=== PATIENT | female | born 1945 | race American Indian/Alaskan Native ===

== ENCOUNTER 2021-01-30 07:29 | Inpatient (IN) | payer MEDICARE ==
[2021-01-30] MEDS ORDERED: cefTRIAXone/NS 1 GM/50 ML 1 GM/50 ML BAG IV ONE (08:47)
[2021-01-30] MEDS ORDERED: dexAMETHasone 20 MG/5 ML VIAL IV ONE (08:47)
[2021-01-30] MEDS ORDERED: AZITHROMYCIN/NS 500 MG/250 ML 500 MG/250 ML BAG IV ONE (08:47)
--- NOTE | 2021-01-30 08:48 | Emergency Department Report ---
ED Fever HPI - General Chief Complaint: Weakness Stated Complaint: WEAKNESS Time Seen by Provider: 01/30/21 08:03 - History of Present Illness Initial Comments: Chief complaint: " I am not feeling too well." HPI: This is a 76-year-old female with history of multiple sclerosis who presents with generalized malaise. She also has fever chills cough shortness of breath. She denies loss of taste or smell. She denies abdominal pain chest pain diarrhea. She denies headache. She lives with son. Son has similar symptoms. Patient has not been hospitalized recently. No history of travel. She did not receive COVID-19 vaccine. She is not followed by a neurologist or primary care physician. Timing/Duration: other (Several days) Fever Severity/Quality: subjective Associated Symptoms: cough, sore throat ED Review of Systems ROS: Stated complaint: WEAKNESS Other details as noted in HPI Comment: All other systems reviewed and negative Constitutional: chills, fever, malaise ENT: denies: throat pain Respiratory: cough, shortness of breath Cardiovascular: denies: chest pain Gastrointestinal: denies: abdominal pain, nausea, vomiting, diarrhea ED Past Medical Hx - Past Medical History Previous Medical History?: Yes Additional medical history: Multiple Sclerosis - Surgical History Past Surgical History?: No - Family History Family history: hypertension - Social History Smoking Status: Never Smoker Substance Use Type: None ED Physical Exam - General Limitations: No Limitations General appearance: alert, in no apparent distress, other (Frequent cough) - Head Head exam: Present: atraumatic, normocephalic - Eye Eye exam: Present: normal appearance - ENT ENT exam: Present: mucous membranes moist - Neck Neck exam: Present: normal inspection, full ROM - Respiratory Respiratory exam: Present: rales, decreased breath sounds. Absent: respiratory distress, wheezes, rhonchi - Cardiovascular Cardiovascular Exam: Present: regular rate, normal rhythm, normal heart sounds. Absent: systolic murmur, diastolic murmur, rubs, gallop - GI/Abdominal GI/Abdominal exam: Present: soft, normal bowel sounds. Absent: distended, tenderness, guarding, rebound - Extremities Exam Extremities exam: Present: normal inspection - Neurological Exam Neurological exam: Present: alert, oriented X3 - Psychiatric Psychiatric exam: Present: normal affect, normal mood - Skin Skin exam: Present: warm, dry, intact, normal color. Absent: rash ED Course Vital Signs 01/30/21 01/30/21 01/30/21 07:49 08:03 08:16 Temperature 100.4 F H Pulse Rate 100 H 89 Respiratory 18 18 Rate Blood Pressure 140/50 140/64 140/64 O2 Sat by Pulse 99 96 95 Oximetry 01/30/21 01/30/21 01/30/21 08:30 08:45 09:00 Temperature Pulse Rate 91 H 95 H 89 Respiratory 15 17 19 Rate Blood Pressure 137/55 143/77 140/51 O2 Sat by Pulse 96 94 Oximetry 01/30/21 01/30/21 01/30/21 09:16 09:30 09:46 Temperature Pulse Rate 92 H 95 H 105 H Respiratory 18 15 18 Rate Blood Pressure 140/51 142/67 142/67 O2 Sat by Pulse 98 96 98 Oximetry 01/30/21 01/30/21 01/30/21 10:00 10:16 10:30 Temperature Pulse Rate 101 H 96 H 98 H Respiratory 19 20 19 Rate Blood Pressure 137/74 137/74 144/70 O2 Sat by Pulse 96 96 99 Oximetry 01/30/21 01/30/21 01/30/21 10:46 10:58 11:00 Temperature Pulse Rate 103 H 94 H Respiratory 14 16 21 Rate Blood Pressure 144/70 153/90 O2 Sat by Pulse 97 96 97 Oximetry 01/30/21 01/30/21 01/30/21 11:16 11:30 11:46 Temperature Pulse Rate 102 H 105 H 110 H Respiratory 20 21 20 Rate Blood Pressure 153/90 153/90 153/90 O2 Sat by Pulse 98 95 95 Oximetry 01/30/21 01/30/21 01/30/21 12:00 12:16 12:30 Temperature Pulse Rate 100 H 98 H 99 H Respiratory 17 17 17 Rate Blood Pressure 139/85 139/85 145/95 O2 Sat by Pulse 96 99 97 Oximetry 01/30/21 01/30/21 01/30/21 12:46 13:00 13:16 Temperature Pulse Rate 96 H 97 H 101 H Respiratory 10 L 13 21 Rate Blood Pressure 145/95 129/72 129/72 O2 Sat by Pulse 97 Oximetry 01/30/21 01/30/21 13:30 13:46 Temperature Pulse Rate 92 H 90 Respiratory 25 H 24 Rate Blood Pressure 129/72 129/72 O2 Sat by Pulse Oximetry - Reevaluation(s) Reevaluation #1: 01/30/21 12:02 I reassessed patient. Patient has normal room air oxygen saturation. Patient does have malodorous dark-colored urine. I observe nurse obtaining urine with straight catheter. ED Medical Decision Making - Lab Data Result diagrams: 01/30/21 10:03 01/30/21 10:03 - Radiology Data Radiology results: report reviewed Patient Name: WALTER TAYLOR Gender: Female Date of : 1945 Referring Provider: TERESO HENDRIX Organization: [facility] Accession Number: [id number] Requested Date: January 30, 2021 10:36 Report Status: Final Requested Procedure: 1 Procedure Description: XR chest 1V ap Modality: XR Findings Reporting MD: Ignacio Moreno Dictation Time: January 30, 2021 09:57 Tea Taster: Not available Sweat Band Separator Date: CHEST 1 VIEW INDICATION: Fever cough. COMPARISON: None FINDINGS: Support devices: None. Heart: Within normal limits. Lungs/Pleura: No acute air space or interstitial disease. Calcified granuloma in the lingula is noted. Additional findings: None. IMPRESSION: No acute findings. Signer Name: Ignacio Moreno Jr, MD Signed: 01/30/2021 9:57 AM Workstation Name: [id number] - Medical Decision Making UTI, suspected COVID-19 infection: Covid markers elevated including ferritin CRP D-dimer. Admitted to the hospital service for further treatment and evaluation Critical care attestation.: If time is entered above; I have spent that time in minutes in the direct care of this critically ill patient, excluding procedure time. ED Disposition Clinical Impression: Suspected COVID-19 virus infection, Urinary tract infection Disposition: OP ADMIT IP TO THIS HOSP Is pt being admited?: Yes Does the pt Need Aspirin: No Condition: Stable Referrals: PRIMARY CARE, [Primary Care Provider] - 3-5 Days
[2021-01-30 10:44] LABS: Basophils % (Auto) 0.2 % (0.0-1.8); Hematocrit 42.8 % (30.3-42.9); Hemoglobin 14.3 gm/dl (10.1-14.3); Lymphocytes # (Auto) 1.1 K/mm3 (1.2-5.4); Lymphocytes % (Auto) 25.3 % (13.4-35.0); Mean Corpuscular HGB Conc 33 % (30-34); Mean Corpuscular Volume 85 fl (79-97); Monocytes # (Auto) 0.4 K/mm3 (0.0-0.8); Monocytes % (Auto) 7.8 % (0.0-7.3); Platelet Count 171 K/mm3 (140-440); Red Blood Count 5.05 M/mm3 (3.65-5.03); Red Cell Distribution Width 13.8 % (13.2-15.2)
[2021-01-30 10:55] LABS: Alanine Aminotransferase 11 units/L (7-56); Albumin 3.8 g/dL (3.9-5); Blood Urea Nitrogen 15 mg/dL (7-17); C-Reactive Protein 2.8 mg/dL (0.00-1.30); Calcium 9.1 mg/dL (8.4-10.2); Hemolysis Index 37
[2021-01-30 11:00] LABS: BUN/Creatinine Ratio 25
--- NOTE | 2021-01-30 11:01 | XRay Report ---
CHEST 1 VIEW INDICATION: Fever cough. COMPARISON: None FINDINGS: Support devices: None. Heart: Within normal limits. Lungs/Pleura: No acute air space or interstitial disease. Calcified granuloma in the lingula is noted . Additional findings: None. IMPRESSION: No acute findings. Signer Name: Ignacio Moreno Jr, MD Signed: 01/30/2021 10:57 AM Workstation Name: [id number]
[2021-01-30 14:25] LABS: Bacteria,Urine 1+ /HPF (Negative); Bilirubin,Urine NEG (Negative); Blood,Urine SM (Negative); Color,Urine Yellow (Yellow); Mucus,Urine FEW /HPF; Urobilinogen,Urine < 2.0 mg/dL (<2.0)
--- NOTE | 2021-01-30 15:08 | History and Physical Report ---
History of Present Illness Chief complaint: I do not feel good at all History of present illness: 76 YO Female with MS presents to ED for evaluation. Patient reports "I do not feel too well". Patient states that she has experienced generalized weakness, malaise, dry cough, subjective fever, shortness of breath, decreased exercise tolerance over the past 1 week with persistent symptoms over the same timeframe. EMS was notified and upon arrival the patient was found to be in distress and subsequent transported to [facility] for further care and evaluation of the aforementioned symptoms. The patient was seen and evaluated in the emergency department. All lab and imaging studies reviewed. The patient was found to h ave a fever with a temperature of 101.4 F. Patient underwent urinalysis and was found to have urinary tract infection, systemic inflammatory response syndrome secondary to coronavirus infection, as well as volume depletion. The patient placed in observation status and admitted to medical floor and initiated on coronavirus protocol. Patient denies chills, chest pain, palpitation, productive cough, skin rash, no recent ill contacts, or known exposure to COVID- 19. No prior admission for review. No medication listed for reconciliation at the time of admission. Advanced care planning conducted in ED. Past History Past Medical History: other (See HPI) Past Surgical History: No surgical history, Other (Reviewed) Social history: . denies: smoking, alcohol abuse, prescription drug abuse Family history: diabetes, hypertension Medications and Allergies Allergies Allergy/AdvReac Type Severity Reaction Status Date / Time No Known Allergies Allergy Verified 01/30/21 07:57 Review of Systems Constitutional: fever, weakness, malaise, lethargy, no weight loss, no weight gain Ears, nose, mouth and throat: no ear pain, no ear discharge, no tinnitis, no na susana congestion, no nasal discharge Breasts: no change in shape, no swelling, no mass Cardiovascular: no chest pain, no orthopnea, no rapid/irregular heart beat, no edema Respiratory: cough, shortness of breath, no hemoptysis, no wheezing, no pleurisy Gastrointestinal: no nausea, no vomiting, no diarrhea, no constipation Genitourinary Female: no pelvic pain, no flank pain, no dysuria, no urinary frequency, no urgency Rectal: no pain, no incontinence, no bleeding Musculoskeletal: no neck stiffness, no neck pain, no arm numbness/tingling, no low back pain, no shooting leg pain Integumentary: no rash, no pruritis, no wounds, no jaundice Neurological: no head injury, no transient paralysis, no weakness, no parathesias, no numbness, no syncope Psychiatric: no anxiety, no memory loss, no sleep disturbances, no insomnia, no suicidal ideation Endocrine: no cold intolerance, no heat intolerance, no excessive thirst, no po lydipsia, no excessive sweating Hematologic/Lymphatic: no easy bruising, no lymphadenopathy, no lymphedema Allergic/Immunologic: no urticaria, no allergic rhinitis, no persistent infections, no anaphylaxis Exam - Constitutional Vitals: Temp Pulse Resp BP Pulse Ox 100.4 F H 90 24 129/72 97 01/30/21 07:49 01/30/21 13:46 01/30/21 13:46 01/30/21 13:46 01/30/21 12:46 General appearance: Present: mild distress - EENT Eyes: Present: PERRL ENT: hearing intact, clear oral mucosa - Neck Neck: Present: supple, normal ROM - Respiratory Respiratory effort: normal, accessory muscle use Respiratory: bilateral: diminished - Cardiovascular Heart Sounds: Present: S1 & S2. Absent: rub, click - Extremities Extremities: pulses symmetrical, No edema Peripheral Pulses: within normal limits - Abdominal General gastrointestinal: Present: soft, non-tender, non-distended, normal bowel sounds Female genitourinary: Present: normal - Integumentary Integumentary: Present: clear, warm, dry - Musculoskeletal Musculoskeletal: gait normal, strength equal bilaterally - Psychiatric Psychiatric: appropriate mood/affect, intact judgment & insight - Neurologic Neurologic: CNII-XII intact, moves all extremities Results - Labs CBC & Chem 7: 01/30/21 10:03 01/30/21 10:03 Labs: Abnormal lab results 01/30/21 01/30/21 01/30/21 Range/Units 10:03 10:03 10:03 RBC 5.05 H (3.65-5.03) M/mm3 [place] % (Auto) 7.8 H (0.0-7.3) % Lymph # (Auto) 1.1 L (1.2-5.4) K/mm3 D-Dimer 682.15 H (0-234) ng/mlDDU Sodium 133 L (137-145) mmol/L Chloride 93.5 L (98-107) mmol/L Lactic Acid (0.7-2.0) mmol/L Ferritin (10.0-200.0) ng/mL Lactate Dehydrogenase 268 H (91-180) units/L C-Reactive Protein 2.60 H (0.00-1.30) mg/dL Albumin 3.8 L (3.9-5) g/dL Urine WBC (Auto) (0.0-6.0) /HPF 01/30/21 01/30/21 01/30/21 Range/Units 10:03 10:03 12:02 RBC (3.65-5.03) M/mm3 [place] % (Auto) (0.0-7.3) % Lymph # (Auto) (1.2-5.4) K/mm3 D-Dimer (0-234) ng/mlDDU Sodium (137-145) mmol/L Chloride (98-107) mmol/L Lactic Acid (0.7-2.0) mmol/L Ferritin 418.7 H (10.0-200.0) ng/mL Lactate Dehydrogenase 246 H (91-180) units/L C-Reactive Protein 2.80 H (0.00-1.30) mg/dL Albumin (3.9-5) g/dL Urine WBC (Auto) 19.0 H (0.0-6.0) /HPF 01/30/21 Range/Units 12:06 RBC (3.65-5.03) M/mm3 [place] % (Auto) (0.0-7.3) % Lymph # (Auto) (1.2-5.4) K/mm3 D-Dimer (0-234) ng/mlDDU Sodium (137-145) mmol/L Chloride (98-107) mmol/L Lactic Acid < 0.20 L (0.7-2.0) mmol/L Ferritin (10.0-200.0) ng/mL Lactate Dehydrogenase (91-180) units/L C-Reactive Protein (0.00-1.30) mg/dL Albumin (3.9-5) g/dL Urine WBC (Auto) (0.0-6.0) /HPF Assessment and Plan - Patient Problems (1) Urinary tract infection Current Visit: Yes Status: Acute Qualifiers: Encounter type: initial encounter Plan to address problem: IV antibiotic therapy, supportive care, urinalysis, CBC, repeat CBC in a.m. (2) Coronavirus infection Current Visit: Yes Status: Acute Plan to address problem: Coronavirus protocol: IV steroid therapy, supplemental oxygen, pulse oximetry, vitamin C therapy, vitamin D therapy, zinc therapy, supportive care. Prophylactic anticoagulation (3) Systemic inflammatory response syndrome Current Visit: Yes Status: Acute Plan to address problem: IV antibiotic therapy, supportive care, CBC, repeat CBC in a.m. (4) Vascular dementia Current Visit: Yes Status: Acute Qualifiers: Dementia behavioral disturbance: without behavioral disturbance Qualified Code(s): F01.50 - Vascular dementia without behavioral disturbance Plan to address problem: Verbal prompting, verbal redirection, supportive care, benzodiazepine therapy as clinically indicated (5) Cerebral atherosclerosis Current Visit: Yes Status: Acute Plan to address problem: Risk factor reduction, antiplatelet therapy as clinically indicated (6) Volume depletion Current Visit: Yes Status: Acute Plan to address problem: IV fluid resuscitation therapy, BMP, repeat BMP in a.m., monitor fluid balance, strict I's/O, (7) DVT prophylaxis Current Visit: Yes Status: Acute Plan to address problem: SCD to bilateral lower extremities while in bed, prophylactic anticoagulation (8) Advance care planning Current Visit: Yes Status: Acute Plan to address problem: Disease education conducted, care plan discussed, diagnoses discussed, patient is full code, patient knowledges understanding agreement with care plan, +30 minutes.
[2021-01-30] MEDS ORDERED: ALBUTEROL 2.5 MG/3 ML NEBU IH PRN (15:45)
[2021-01-30] MEDS ORDERED: ONDANSETRON 4 MG/2 ML INJ IV PRN (15:45)
[2021-01-30] MEDS ORDERED: HYDROmorphone 1 MG/1 ML INJ IV PRN (15:45)
[2021-01-30] MEDS ORDERED: oxyCODONE /ACETAMINOPHEN 5-325MG TAB PO PRN (15:45)
[2021-01-30] MEDS: HEPARIN 5,000 UNIT/1 ML VIAL SUB-Q SCH (23:18)
[2021-01-30] MEDS: ASCORBIC ACID 500 MG TAB PO SCH (23:18)
[2021-01-30] MEDS: ZINC SULFATE 220 MG CAP PO SCH (23:18)
[2021-01-30] MEDS: methylPREDNISolone Sod Succinate 40 MG/1 ML INJ IV SCH (23:18)
[2021-01-31] MEDS: methylPREDNISolone Sod Succinate 40 MG/1 ML INJ IV SCH ×2 (06:23→14:46)
[2021-01-31] MEDS: SODIUM CHLORIDE 0.9% 1000 ML 1,000 ML IV SCH (06:24)
[2021-01-31 08:10] LABS: Basophils % (Auto) 0.3 % (0.0-1.8); Eosinophils % (Auto) 0.1 % (0.0-4.3); Hematocrit 38.3 % (30.3-42.9); Hemoglobin 13.2 gm/dl (10.1-14.3); Lymphocytes # (Auto) 0.6 K/mm3 (1.2-5.4); Mean Corpuscular HGB Conc 34 % (30-34); Mean Corpuscular Volume 84 fl (79-97); Monocytes # (Auto) 0.2 K/mm3 (0.0-0.8); Monocytes % (Auto) 5.8 % (0.0-7.3); Platelet Count 183 K/mm3 (140-440); Red Blood Count 4.56 M/mm3 (3.65-5.03); Red Cell Distribution Width 13.8 % (13.2-15.2)
[2021-01-31 08:36] LABS: Alanine Aminotransferase 10 units/L (7-56); Albumin 3.7 g/dL (3.9-5); Blood Urea Nitrogen 16 mg/dL (7-17); Calcium 9.2 mg/dL (8.4-10.2); Hemolysis Index 5
[2021-01-31 08:42] LABS: BUN/Creatinine Ratio 32
[2021-01-31] MEDS: HEPARIN 5,000 UNIT/1 ML VIAL SUB-Q SCH ×2 (09:31→22:03)
[2021-01-31] MEDS ORDERED: cefTRIAXone/NS 1 GM/50 ML 1 GM/50 ML BAG IV SCH (10:00)
--- NOTE | 2021-01-31 13:51 | Progress Note ---
Assessment and Plan Assessment and plan: (1) Urinary tract infection Current Visit: Yes Status: Acute Qualifiers: Encounter type: initial encounter Plan to address problem: IV antibiotic therapy, supportive care, urinalysis, CBC, repeat CBC in a.m. (2) Coronavirus infection Current Visit: Yes Status: Acute Plan to address problem: Coronavirus protocol: IV steroid therapy, supplemental oxygen, pulse oximetry, vitamin C therapy, vitamin D therapy, zinc therapy, supportive care. Prophylactic anticoagulation (3) Systemic inflammatory response syndrome Current Visit: Yes Status: Acute Plan to address problem: IV antibiotic therapy, supportive care, CBC, repeat CBC in a.m. (4) Vascular dementia Current Visit: Yes Status: Acute Qualifiers: Dementia behavioral disturbance: without behavioral disturbance Qualified Code(s): F01.50 - Vascular dementia without behavioral disturbance Plan to address problem: Verbal prompting, verbal redirection, supportive care, benzodiazepine therapy as clinically indicated (5) Cerebral atherosclerosis Current Visit: Yes Status: Acute Plan to address problem: Risk factor reduction, antiplatelet therapy as clinically indicated (6) Volume depletion Current Visit: Yes Status: Acute Plan to address problem: IV fluid resuscitation therapy, BMP, repeat BMP in a.m., monitor fluid balance, strict I's/O, (7) DVT prophylaxis Current Visit: Yes Status: Acute Plan to address problem: SCD to bilateral lower extremities while in bed, prophylactic anticoagulation (8) Advance care planning Current Visit: Yes Status: Acute Plan to address problem: Disease education conducted, care plan discussed, diagnoses discussed, patient is full code, patient knowledges understanding agreement with care plan, +30 minutes. 01/31/21 Patient initially presented with generalized weakness cough, shortness of breath. She is diagnosed with Covid-19 infection, UTI. Patient doing better. She is not on Oxygen. I discussed case with ID Physician. Likely dc home tomorrow. History Interval history: Patient presented with generalized weakness, cough, fever, SOB, diagnosed with Covid-19 infection Hospitalist Physical - Physical exam Narrative exam: Gen: Not in acute distress, lying in bed HEENT: Normocephalic, atraumatic Neck : supple, no JVD Heart:S1 and S2 reg, no murmurs, rubs or gallop Lungs: clear to auscultation bilaterally, no wheeze Abd: Soft , NT, non distended, normal bowel sounds Ext: No edema, no clubbing, no cyanosis Neuro: Awake, alert, oriented, moves all ext - Constitutional Vitals: Temp Pulse Resp BP Pulse Ox 97.9 F 86 16 133/62 96 01/31/21 04:49 01/31/21 04:49 01/31/21 04:49 01/31/21 04:49 01/31/21 10:00 Results - Labs CBC & Chem 7: 01/31/21 07:45 01/31/21 07:45 Labs: Laboratory Last Values WBC 3.7 K/mm3 (4.5-11.0) L 01/31/21 07:45 RBC 4.56 M/mm3 (3.65-5.03) 01/31/21 07:45 Hgb 13.2 gm/dl (10.1-14.3) 01/31/21 07:45 Hct 38.3 % (30.3-42.9) 01/31/21 07:45 MCV 84 fl (79-97) 01/31/21 07:45 MCH 29 pg (28-32) 01/31/21 07:45 MCHC 34 % (30-34) 01/31/21 07:45 RDW 13.8 % (13.2-15.2) 01/31/21 07:45 Plt Count 183 K/mm3 (140-440) 01/31/21 07:45 Lymph % (Auto) 17.0 % (13.4-35.0) 01/31/21 07:45 [place] % (Auto) 5.8 % (0.0-7.3) 01/31/21 07:45 Eos % (Auto) 0.1 % (0.0-4.3) 01/31/21 07:45 Baso % (Auto) 0.3 % (0.0-1.8) 01/31/21 07:45 Lymph # (Auto) 0.6 K/mm3 (1.2-5.4) L 01/31/21 07:45 [place] # (Auto) 0.2 K/mm3 (0.0-0.8) 01/31/21 07:45 Eos # (Auto) 0.0 K/mm3 (0.0-0.4) 01/31/21 07:45 Baso # (Auto) 0.0 K/mm3 (0.0-0.1) 01/31/21 07:45 Seg Neutrophils % 76.8 % (40.0-70.0) H 01/31/21 07:45 Seg Neutrophils # 2.8 K/mm3 (1.8-7.7) 01/31/21 07:45 D-Dimer 682.15 ng/mlDDU (0-234) H 01/30/21 10:03 Sodium 140 mmol/L (137-145) D 01/31/21 07:45 Potassium 3.7 mmol/L (3.6-5.0) 01/31/21 07:45 Chloride 101.5 mmol/L (98-107) 01/31/21 07:45 Carbon Dioxide 26 mmol/L (22-30) 01/31/21 07:45 Anion Gap 16 mmol/L 01/31/21 07:45 BUN 16 mg/dL (7-17) 01/31/21 07:45 Creatinine 0.5 mg/dL (0.6-1.2) L 01/31/21 07:45 Estimated GFR > 60 ml/min 01/31/21 07:45 BUN/Creatinine Ratio 32 % 01/31/21 07:45 Glucose 116 mg/dL (65-100) H 01/31/21 07:45 Lactic Acid < 0.20 mmol/L (0.7-2.0) L 01/30/21 12:06 Calcium 9.2 mg/dL (8.4-10.2) 01/31/21 07:45 Ferritin 418.7 ng/mL (10.0-200.0) H 01/30/21 10:03 Total Bilirubin 0.30 mg/dL (0.1-1.2) 01/31/21 07:45 AST 24 units/L (5-40) 01/31/21 07:45 ALT 10 units/L (7-56) 01/31/21 07:45 Alkaline Phosphatase 56 units/L (35-129) 01/31/21 07:45 Lactate Dehydrogenase 246 units/L (91-180) H 01/30/21 10:03 Lactate Dehydrogenase 268 units/L (91-180) H 01/30/21 10:03 C-Reactive Protein 2.60 mg/dL (0.00-1.30) H 01/30/21 10:03 C-Reactive Protein 2.80 mg/dL (0.00-1.30) H 01/30/21 10:03 Total Protein 6.6 g/dL (6.3-8.2) 01/31/21 07:45 Albumin 3.7 g/dL (3.9-5) L 01/31/21 07:45 Albumin/Globulin Ratio 1.3 % 01/31/21 07:45 Procalcitonin < 0.05 ng/mL (<0.15) 01/30/21 10:03 Urine Color Yellow (Yellow) 01/30/21 12:02 Urine Turbidity Slightly-cloudy (Clear) 01/30/21 12:02 Urine pH 5.0 (5.0-7.0) 01/30/21 12:02 Ur Specific [place] 1.025 (1.003-1.030) 01/30/21 12:02 Urine Protein 100 mg/dl mg/dL (Negative) 01/30/21 12:02 Urine Glucose (UA) Neg mg/dL (Negative) 01/30/21 12:02 Urine Ketones 20 mg/dL (Negative) 01/30/21 12:02 Urine Blood Sm (Negative) 01/30/21 12:02 Urine Nitrite Neg (Negative) 01/30/21 12:02 Urine Bilirubin Neg (Negative) 01/30/21 12:02 Urine Urobilinogen < 2.0 mg/dL (<2.0) 01/30/21 12:02 Ur Leukocyte Esterase Tr (Negative) 01/30/21 12:02 Urine WBC (Auto) 19.0 /HPF (0.0-6.0) H 01/30/21 12:02 Urine RBC (Auto) 1.0 /HPF (0.0-6.0) 01/30/21 12:02 U Epithel Cells (Auto) 1.0 /HPF (0-13.0) 01/30/21 12:02 Urine Bacteria (Auto) 1+ /HPF (Negative) 01/30/21 12:02 Urine Mucus Few /HPF 01/30/21 12:02 Coronavirus (PCR) Positive (Negative) A 01/30/21 Unknown Microbiology: Microbiology 01/30/21 10:03 Peripheral/Venous Blood Culture - Preliminary NO GROWTH AFTER 24 HOURS 01/30/21 10:03 Peripheral/Venous Blood Culture - Preliminary NO GROWTH AFTER 24 HOURS 01/30/21 Unknown Urine,Clean Catch Urine Culture - Preliminary NO GROWTH AFTER 24 HOURS Meneses/IV: Voiding Method External Female Catheter Active Medications - Current Medications Current Medications: Generic Name Dose Route Start Last Admin Trade Name Freq PRN Reason Stop Dose Admin Acetaminophen 650 mg 01/30/21 15:45 Acetaminophen 325 Mg Tab PO Q4H PRN Pain MILD(1-3)/Fever >100.5/AYOUB Albuterol 2.5 mg 01/30/21 15:45 Albuterol 2.5 Mg/3 Ml Nebu IH Q4HRT PRN Shortness Of Breath Ascorbic Acid 500 mg 01/30/21 22:00 01/30/21 23:18 Ascorbic Acid 500 Mg Tab PO 500 mg BID CHARLES Administration Cholecalciferol 1,000 unit 01/31/21 10:00 Cholecalciferol (Vit D3) 400 Unit Tab PO QDAY CHARLES Heparin Sodium (Porcine) 5,000 unit 01/30/21 22:00 01/31/21 09:31 Heparin 5,000 Unit/1 Ml Vial SUB-Q 5,000 unit Q12HR CHARLES Administration Hydromorphone HCl 0.5 mg 01/30/21 15:45 Hydromorphone 1 Mg/1 Ml Inj IV Q12H PRN Pain , Severe (7-10) Sodium Chloride 1,000 mls @ 75 mls/hr 01/30/21 15:45 01/31/21 06:24 Nacl 0.9% 1000 Ml IV 75 mls/hr DIRECT CHARLES Administration Ceftriaxone Sodium 1 gm in 50 mls @ 100 mls/hr 01/31/21 10:00 01/31/21 09:30 Rocephin/Ns 1 Gm/50 Ml IV 100 mls/hr Q24H CHARLES Administration Protocol Methylprednisolone Sodium Succinate 40 mg 01/30/21 22:00 01/31/21 06:23 Methylprednisolone Sod Succinate 40 Mg/1 Ml Inj IV 40 mg Q8HR CHARLES Administration Ondansetron HCl 4 mg 01/30/21 15:45 Ondansetron 4 Mg/2 Ml Inj IV Q8H PRN Nausea And Vomiting Oxycodone/Acetaminophen 1 tab 01/30/21 15:45 Oxycodone /Acetaminophen 5-325mg Tab PO Q12H PRN Pain, Moderate (4-6) Sodium Chloride 10 ml 01/30/21 22:00 01/31/21 09:31 Sodium Chloride 0.9% 10 Ml Flush Syringe IV 10 ml BID CHARLES Administration Sodium Chloride 10 ml 01/30/21 15:45 Sodium Chloride 0.9% 10 Ml Flush Syringe IV PRN PRN LINE FLUSH Zinc Sulfate 220 mg 01/30/21 22:00 01/30/21 23:18 Zinc Sulfate 220 Mg Cap PO 220 mg BID CHARLES Administration
--- NOTE | 2021-01-31 14:04 | Consultation ---
History of Present Illness - Reason for Consult Consult date: 01/31/21 COVID Requesting physician: HIRO MCKENZIE - History of Present Illness The patient is a 76-year-old female with history of MS, does not take any meds was admitted to the hospital yesterday with complaints of not feeling well and having a fever. Upon evaluation in the ER, there was concern for possible UTI. Patient tested positive for COVID-19. Infectious diseases was consulted for additional evaluation. T-max was 100.4 on admission. Denies any urinary burning. Reports a mild cough. Labs revealed mild leukopenia, D-dimer 682, ferritin 418, CRP 2.8, procalcitonin 0.05. Review of Systems: General: no fevers,chills or rigors HEENT: no new visual disturbance Respiratory: cough +, no sputum, hemoptysis or shortness of breath Cardiovascular: No chest pain, syncope Gastrointestinal: No nausea, vomiting or diarrhea Genitourinary: No dysuria or hematuria Musculoskeletal: No new or worsening neck pain or back pain Neurologic: No headaches, seizures Hematologic: No easy bruising or bleeding Endocrine: No night sweats or acute weight loss Skin: negative for rash, jaundice Psychiatric: No suicidal or homicidal ideation Past History Past Medical History: other (See HPI) Past Surgical History: No surgical history, Other (Reviewed) Social history: . denies: smoking, alcohol abuse, prescription drug abuse Family history: diabetes, hypertension Medications and Allergies Allergies Allergy/AdvReac Type Severity Reaction Status Date / Time No Known Allergies Allergy Verified 01/30/21 07:57 Active Meds: Active Medications Acetaminophen (Acetaminophen 325 Mg Tab) 650 mg PO Q4H PRN PRN Reason: Pain MILD(1-3)/Fever >100.5/AYOUB Albuterol (Albuterol 2.5 Mg/3 Ml Nebu) 2.5 mg IH Q4HRT PRN PRN Reason: Shortness Of Breath Ascorbic Acid (Ascorbic Acid 500 Mg Tab) 500 mg PO BID [facility] Last Admin: 01/30/21 23:18 Dose: 500 mg Documented by: Cholecalciferol (Cholecalciferol (Vit D3) 400 Unit Tab) 1,000 unit PO QDAY [facility] Heparin Sodium (Porcine) (Heparin 5,000 Unit/1 Ml Vial) 5,000 unit SUB-Q Q12HR [facility] Last Admin: 01/31/21 09:31 Dose: 5,000 unit Documented by: Hydromorphone HCl (Hydromorphone 1 Mg/1 Ml Inj) 0.5 mg IV Q12H PRN PRN Reason: Pain , Severe (7-10) Sodium Chloride (Nacl 0.9% 1000 Ml) 1,000 mls @ 75 mls/hr IV DIRECT [facility] Last Admin: 01/31/21 06:24 Dose: 75 mls/hr Documented by: Ceftriaxone Sodium (Rocephin/Ns 1 Gm/50 Ml) 1 gm in 50 mls @ 100 mls/hr IV Q24H CHARLES; Protocol Last Admin: 01/31/21 09:30 Dose: 100 mls/hr Documented by: Methylprednisolone Sodium Succinate (Methylprednisolone Sod Succinate 40 Mg/1 Ml Inj) 40 mg IV Q8HR [facility] Last Admin: 01/31/21 06:23 Dose: 40 mg Documented by: Ondansetron HCl (Ondansetron 4 Mg/2 Ml Inj) 4 mg IV Q8H PRN PRN Reason: Nausea And Vomiting Oxycodone/Acetaminophen (Oxycodone /Acetaminophen 5-325mg Tab) 1 tab PO Q12H PRN PRN Reason: Pain, Moderate (4-6) Sodium Chloride (Sodium Chloride 0.9% 10 Ml Flush Syringe) 10 ml IV BID [facility] Last Admin: 01/31/21 09:31 Dose: 10 ml Documented by: Sodium Chloride (Sodium Chloride 0.9% 10 Ml Flush Syringe) 10 ml IV PRN PRN PRN Reason: LINE FLUSH Zinc Sulfate (Zinc Sulfate 220 Mg Cap) 220 mg PO BID [facility] Last Admin: 01/30/21 23:18 Dose: 220 mg Documented by: Physical Examination - Physical Exam Narrative exam: Physical Exam: Constitutional: Alert, cooperative. No acute distress Head, Ears, Nose: Normocephalic, atraumatic. External ears, nose normal Eyes: Conjunctivae/corneas clear. No icterus. No ptosis. Neck: Supple, no meningeal signs Cardiovascular: S1, S2 normal. Respiratory: Good air entry, clear to auscultation bilaterally GI: Soft, non-tender; bowel sounds normal. No peritoneal signs Musculoskeletal: No pedal edema, no cyanosis. Skin: No rash or abscess Hem/Lymphatic: No palpable cervical or supraclavicular nodes. No lymphangitis Psych: Mood ok. Affect normal Neurological: Awake, alert, oriented. No gross abnormality - Constitutional Vitals: Vital Signs Temp Pulse Resp BP Pulse Ox 97.9 F 86 16 133/62 96 01/31/21 04:49 01/31/21 04:49 01/31/21 04:49 01/31/21 04:49 01/31/21 10:00 Temperature -Last 24 Hours Temperature 97.9 F Temperature 98.4 F Results - Labs CBC & Chem 7: 01/31/21 07:45 01/31/21 07:45 Labs: Abnormal lab results 01/30/21 01/30/21 01/31/21 Range/Units 12:02 Unknown 07:45 WBC 3.7 L (4.5-11.0) K/mm3 Lymph # (Auto) 0.6 L (1.2-5.4) K/mm3 Seg Neutrophils % 76.8 H (40.0-70.0) % Creatinine (0.6-1.2) mg/dL Glucose (65-100) mg/dL Albumin (3.9-5) g/dL Urine WBC (Auto) 19.0 H (0.0-6.0) /HPF Coronavirus (PCR) Positive A (Negative) 01/31/21 Range/Units 07:45 WBC (4.5-11.0) K/mm3 Lymph # (Auto) (1.2-5.4) K/mm3 Seg Neutrophils % (40.0-70.0) % Creatinine 0.5 L (0.6-1.2) mg/dL Glucose 116 H (65-100) mg/dL Albumin 3.7 L (3.9-5) g/dL Urine WBC (Auto) (0.0-6.0) /HPF Coronavirus (PCR) (Negative) - Imaging and Cardiology Chest x-ray: report reviewed, image reviewed (no pneumonia) Assessment and Plan Cultures: SARS CoV2 PCR: Positive 01/30/2021 blood culture: No growth Urine culture: No growth A/P: 76-year-old female with history of MS, does not take any meds was admitted to the hospital with complaints of not feeling well and having a fever: #COVID-19: Not hypoxic, chest x-ray without any obvious evidence of pneumonia. Has been symptomatic with fever and generalized malaise. Labs revealed mild leukopenia, D-dimer 682, ferritin 418, CRP 2.8, procalcitonin 0.05. #Multiple sclerosis: Not on any meds #Question of UTI: Patient has no urinary symptoms. Recs: Patient not hypoxic, no role for steroids or remdesivir at this time No urinary symptoms, antibiotics discontinued Recheck markers tomorrow Get ambulatory saturations in a.m., if clears, okay for discharge, if hypoxic, then will start remdesivir + steroids prophylactic anticoagulation based on d-dimer per hospital protocol Cadence Stevens MD, FACP [facility] O: [phone] F: [phone]
[2021-01-31] MEDS: ASCORBIC ACID 500 MG TAB PO SCH ×2 (16:34→22:05)
[2021-01-31] MEDS: ZINC SULFATE 220 MG CAP PO SCH ×2 (16:34→22:05)
[2021-01-31] MEDS: CHOLECALCIFEROL (VIT D3) 400 UNIT TAB PO SCH (16:34)
[2021-02-01] MEDS: ACETAMINOPHEN 325 MG TAB PO PRN ×2 (04:59→15:16)
[2021-02-01] MEDS: SODIUM CHLORIDE 0.9% 1000 ML 1,000 ML IV SCH ×2 (05:05→23:05)
[2021-02-01] MEDS: ZINC SULFATE 220 MG CAP PO SCH ×2 (10:06→23:06)
[2021-02-01] MEDS: ASCORBIC ACID 500 MG TAB PO SCH ×2 (10:06→23:06)
[2021-02-01] MEDS: CHOLECALCIFEROL (VIT D3) 400 UNIT TAB PO SCH (10:06)
[2021-02-01] MEDS: HEPARIN 5,000 UNIT/1 ML VIAL SUB-Q SCH ×2 (10:07→23:06)
--- NOTE | 2021-02-01 13:02 | Progress Note ---
Assessment and Plan Cultures: SARS CoV2 PCR: Positive 01/30/2021 blood culture: No growth Urine culture: No growth A/P: 76-year-old female with history of MS, does not take any meds was admitted to the hospital with complaints of not feeling well and having a fever: #COVID-19: Not hypoxic, chest x-ray without any obvious evidence of pneumonia. Has been symptomatic with fever and generalized malaise. Labs revealed mild leukopenia, D-dimer 682, ferritin 418, CRP 2.8, procalcitonin 0.05. #Multiple sclerosis: Not on any meds #Question of UTI: Patient has no urinary symptoms. Recs: Febrile likely secondary to COVID-19, patient is unable to ambulate due to MS, unable to obtain ambulatory saturations, given fever and high risk of progression to severe COVID-19, will order remdesivir and steroids prophylactic anticoagulation based on d-dimer per hospital protocol Monitor inflammatory markers d/w Dr. Joaquin Stevens MD, FACP [facility] O: [phone] F: [phone] Subjective Date of service: 02/01/21 Interval history: Febrile. Remains on room air. Unable to ambulate due to MS. Objective - Exam Narrative Exam: Physical Exam: Constitutional: Alert, cooperative. No acute distress Head, Ears, Nose: Normocephalic, atraumatic. External ears, nose normal Eyes: Conjunctivae/corneas clear. No icterus. No ptosis. Neck: Supple, no meningeal signs Cardiovascular: S1, S2 normal. Respiratory: Good air entry, clear to auscultation bilaterally GI: Soft, non-tender; bowel sounds normal. No peritoneal signs Musculoskeletal: No pedal edema, no cyanosis. Skin: No rash or abscess Hem/Lymphatic: No palpable cervical or supraclavicular nodes. No lymphangitis Psych: Mood ok. Affect normal Neurological: Awake, alert, oriented. No gross abnormality - Constitutional Vitals: Vital Signs Temp Pulse Resp BP Pulse Ox 99.7 F H 109 H 20 148/72 97 02/01/21 06:43 02/01/21 04:23 02/01/21 04:23 02/01/21 04:23 02/01/21 04:23 Temperature -Last 24 Hours Temperature 99.7 F Temperature 102.6 F Temperature 98.6 F Temperature 98.0 F - Labs CBC & Chem 7: 01/31/21 07:45 01/31/21 07:45
--- NOTE | 2021-02-01 13:27 | Progress Note ---
Assessment and Plan Assessment and plan: (1) Urinary tract infection Current Visit: Yes Status: Acute Qualifiers: Encounter type: initial encounter Plan to address problem: IV antibiotic therapy, supportive care, urinalysis, CBC, repeat CBC in a.m. (2) Coronavirus infection Current Visit: Yes Status: Acute Plan to address problem: Coronavirus protocol: IV steroid therapy, supplemental oxygen, pulse oximetry, vitamin C therapy, vitamin D therapy, zinc therapy, supportive care. Prophylactic anticoagulation (3) Systemic inflammatory response syndrome Current Visit: Yes Status: Acute Plan to address problem: IV antibiotic therapy, supportive care, CBC, repeat CBC in a.m. (4) Vascular dementia Current Visit: Yes Status: Acute Qualifiers: Dementia behavioral disturbance: without behavioral disturbance Qualified Code(s): F01.50 - Vascular dementia without behavioral disturbance Plan to address problem: Verbal prompting, verbal redirection, supportive care, benzodiazepine therapy as clinically indicated (5) Cerebral atherosclerosis Current Visit: Yes Status: Acute Plan to address problem: Risk factor reduction, antiplatelet therapy as clinically indicated (6) Volume depletion Current Visit: Yes Status: Acute Plan to address problem: IV fluid resuscitation therapy, BMP, repeat BMP in a.m., monitor fluid balance, strict I's/O, (7) DVT prophylaxis Current Visit: Yes Status: Acute Plan to address problem: SCD to bilateral lower extremities while in bed, prophylactic anticoagulation (8) Advance care planning Current Visit: Yes Status: Acute Plan to address problem: Disease education conducted, care plan discussed, diagnoses discussed, patient is full code, patient knowledges understanding agreement with care plan, +30 minutes. 01/31/21 Patient initially presented with generalized weakness cough, shortness of breath. She is diagnosed with Covid-19 infection, UTI. Patient doing better. She is not on Oxygen. I discussed case with ID Physician. Likely dc home tomorrow. 02/01/21 Patient diagnosed with Covid-19 infection. Today had fever of 102.6. I discussed with ID Physician. Patient started on Dexamethasone and Remdesivir today. patient has multiple sclerosis and not ambulatory to check ambulatory pulse ox, but started on meds to present worsening History Interval history: Patient presented with generalized weakness, cough, fever, SOB, diagnosed with Covid-19 infection Fever of 102.6 today Hospitalist Physical - Physical exam Narrative exam: Gen: Not in acute distress, lying in bed HEENT: Normocephalic, atraumatic Neck : supple, no JVD Heart:S1 and S2 reg, no murmurs, rubs or gallop Lungs: clear to auscultation bilaterally, no wheeze Abd: Soft , NT, non distended, normal bowel sounds Ext: No edema, no clubbing, no cyanosis Neuro: Awake, alert, oriented, moves all ext - Constitutional Vitals: Temp Pulse Resp BP Pulse Ox 99.7 F H 109 H 20 148/72 96 02/01/21 06:43 02/01/21 04:23 02/01/21 04:23 02/01/21 04:23 02/01/21 10:00 Results - Labs CBC & Chem 7: 01/31/21 07:45 01/31/21 07:45 Labs: Laboratory Last Values WBC 3.7 K/mm3 (4.5-11.0) L 01/31/21 07:45 RBC 4.56 M/mm3 (3.65-5.03) 01/31/21 07:45 Hgb 13.2 gm/dl (10.1-14.3) 01/31/21 07:45 Hct 38.3 % (30.3-42.9) 01/31/21 07:45 MCV 84 fl (79-97) 01/31/21 07:45 MCH 29 pg (28-32) 01/31/21 07:45 MCHC 34 % (30-34) 01/31/21 07:45 RDW 13.8 % (13.2-15.2) 01/31/21 07:45 Plt Count 183 K/mm3 (140-440) 01/31/21 07:45 Lymph % (Auto) 17.0 % (13.4-35.0) 01/31/21 07:45 [place] % (Auto) 5.8 % (0.0-7.3) 01/31/21 07:45 Eos % (Auto) 0.1 % (0.0-4.3) 01/31/21 07:45 Baso % (Auto) 0.3 % (0.0-1.8) 01/31/21 07:45 Lymph # (Auto) 0.6 K/mm3 (1.2-5.4) L 01/31/21 07:45 [place] # (Auto) 0.2 K/mm3 (0.0-0.8) 01/31/21 07:45 Eos # (Auto) 0.0 K/mm3 (0.0-0.4) 01/31/21 07:45 Baso # (Auto) 0.0 K/mm3 (0.0-0.1) 01/31/21 07:45 Seg Neutrophils % 76.8 % (40.0-70.0) H 01/31/21 07:45 Seg Neutrophils # 2.8 K/mm3 (1.8-7.7) 01/31/21 07:45 D-Dimer 682.15 ng/mlDDU (0-234) H 01/30/21 10:03 Sodium 140 mmol/L (137-145) D 01/31/21 07:45 Potassium 3.7 mmol/L (3.6-5.0) 01/31/21 07:45 Chloride 101.5 mmol/L (98-107) 01/31/21 07:45 Carbon Dioxide 26 mmol/L (22-30) 01/31/21 07:45 Anion Gap 16 mmol/L 01/31/21 07:45 BUN 16 mg/dL (7-17) 01/31/21 07:45 Creatinine 0.5 mg/dL (0.6-1.2) L 01/31/21 07:45 Estimated GFR > 60 ml/min 01/31/21 07:45 BUN/Creatinine Ratio 32 % 01/31/21 07:45 Glucose 116 mg/dL (65-100) H 01/31/21 07:45 Lactic Acid < 0.20 mmol/L (0.7-2.0) L 01/30/21 12:06 Calcium 9.2 mg/dL (8.4-10.2) 01/31/21 07:45 Ferritin 418.7 ng/mL (10.0-200.0) H 01/30/21 10:03 Total Bilirubin 0.30 mg/dL (0.1-1.2) 01/31/21 07:45 AST 24 units/L (5-40) 01/31/21 07:45 ALT 10 units/L (7-56) 01/31/21 07:45 Alkaline Phosphatase 56 units/L (35-129) 01/31/21 07:45 Lactate Dehydrogenase 246 units/L (91-180) H 01/30/21 10:03 Lactate Dehydrogenase 268 units/L (91-180) H 01/30/21 10:03 C-Reactive Protein 2.60 mg/dL (0.00-1.30) H 01/30/21 10:03 C-Reactive Protein 2.80 mg/dL (0.00-1.30) H 01/30/21 10:03 Total Protein 6.6 g/dL (6.3-8.2) 01/31/21 07:45 Albumin 3.7 g/dL (3.9-5) L 01/31/21 07:45 Albumin/Globulin Ratio 1.3 % 01/31/21 07:45 Procalcitonin < 0.05 ng/mL (<0.15) 01/30/21 10:03 Urine Color Yellow (Yellow) 01/30/21 12:02 Urine Turbidity Slightly-cloudy (Clear) 01/30/21 12:02 Urine pH 5.0 (5.0-7.0) 01/30/21 12:02 Ur Specific [place] 1.025 (1.003-1.030) 01/30/21 12:02 Urine Protein 100 mg/dl mg/dL (Negative) 01/30/21 12:02 Urine Glucose (UA) Neg mg/dL (Negative) 01/30/21 12:02 Urine Ketones 20 mg/dL (Negative) 01/30/21 12:02 Urine Blood Sm (Negative) 01/30/21 12:02 Urine Nitrite Neg (Negative) 01/30/21 12:02 Urine Bilirubin Neg (Negative) 01/30/21 12:02 Urine Urobilinogen < 2.0 mg/dL (<2.0) 01/30/21 12:02 Ur Leukocyte Esterase Tr (Negative) 01/30/21 12:02 Urine WBC (Auto) 19.0 /HPF (0.0-6.0) H 01/30/21 12:02 Urine RBC (Auto) 1.0 /HPF (0.0-6.0) 01/30/21 12:02 U Epithel Cells (Auto) 1.0 /HPF (0-13.0) 01/30/21 12:02 Urine Bacteria (Auto) 1+ /HPF (Negative) 01/30/21 12:02 Urine Mucus Few /HPF 01/30/21 12:02 Coronavirus (PCR) Positive (Negative) A 01/30/21 Unknown Microbiology: Microbiology 01/30/21 10:03 Peripheral/Venous Blood Culture - Preliminary NO GROWTH AFTER 48 HOURS 01/30/21 10:03 Peripheral/Venous Blood Culture - Preliminary NO GROWTH AFTER 48 HOURS Meneses/IV: Voiding Method External Female Catheter Active Medications - Current Medications Current Medications: Generic Name Dose Route Start Last Admin Trade Name Freq PRN Reason Stop Dose Admin Acetaminophen 650 mg 01/30/21 15:45 02/01/21 04:59 Acetaminophen 325 Mg Tab PO 650 mg Q4H PRN Administration Pain MILD(1-3)/Fever >100.5/AYOUB Albuterol 2.5 mg 01/30/21 15:45 Albuterol 2.5 Mg/3 Ml Nebu IH Q4HRT PRN Shortness Of Breath Ascorbic Acid 500 mg 01/30/21 22:00 02/01/21 10:06 Ascorbic Acid 500 Mg Tab PO 500 mg BID CHARLES Administration Cholecalciferol 1,000 unit 02/02/21 10:00 Cholecalciferol (Vit D3) 1000 Unit (25 Mcg) Tab PO Q24HR [facility]LES Dexamethasone 6 mg 02/01/21 13:00 Dexamethasone 4 Mg Tab PO 02/10/21 10:01 DAILY CHARLES Heparin Sodium (Porcine) 5,000 unit 01/30/21 22:00 02/01/21 10:07 Heparin 5,000 Unit/1 Ml Vial SUB-Q 5,000 unit Q12HR [facility]LES Administration Hydromorphone HCl 0.5 mg 01/30/21 15:45 Hydromorphone 1 Mg/1 Ml Inj IV Q12H PRN Pain , Severe (7-10) Sodium Chloride 1,000 mls @ 75 mls/hr 01/30/21 15:45 02/01/21 05:05 Nacl 0.9% 1000 Ml IV 75 mls/hr DIRECT CHARLES Administration REMDESIVIR 200 mg/ Sodium 250 mls @ 500 mls/hr 02/01/21 15:00 Chloride IV 02/01/21 15:29 ONCE ONE REMDESIVIR 100 mg/ Sodium 250 mls @ 500 mls/hr 02/02/21 21:00 Chloride IV 02/05/21 21:29 Q24HR@2100 [facility] Ondansetron HCl 4 mg 01/30/21 15:45 Ondansetron 4 Mg/2 Ml Inj IV Q8H PRN Nausea And Vomiting Oxycodone/Acetaminophen 1 tab 01/30/21 15:45 Oxycodone /Acetaminophen 5-325mg Tab PO Q12H PRN Pain, Moderate (4-6) Sodium Chloride 10 ml 01/30/21 22:00 02/01/21 10:07 Sodium Chloride 0.9% 10 Ml Flush Syringe IV 10 ml BID CHARLES Administration Sodium Chloride 10 ml 01/30/21 15:45 Sodium Chloride 0.9% 10 Ml Flush Syringe IV PRN PRN LINE FLUSH Sodium Chloride 50 ml 02/01/21 15:30 Sodium Chloride 0.9% 50 Ml Ivpb IV 02/05/21 21:01 Q24HR@2100 [facility] Zinc Sulfate 220 mg 01/30/21 22:00 02/01/21 10:06 Zinc Sulfate 220 Mg Cap PO 220 mg BID CHARLES Administration
[2021-02-01] MEDS ORDERED: REMDESIVIR 200 MG in SODIUM CHLORIDE 0.9% 250ML 250 ML IV ONE (15:00)
[2021-02-01] MEDS: DEXAMETHASONE 4 MG TAB PO SCH (15:05)
[2021-02-01] MEDS: SODIUM CHLORIDE 0.9% 50 ML IVPB IV SCH (15:05)
[2021-02-02] MEDS: DEXAMETHASONE 4 MG TAB PO SCH (09:10)
[2021-02-02] MEDS: HEPARIN 5,000 UNIT/1 ML VIAL SUB-Q SCH ×2 (09:11→21:37)
[2021-02-02] MEDS: CHOLECALCIFEROL (VIT D3) 1000 UNIT (25 mcg) TAB PO SCH (09:11)
[2021-02-02] MEDS: ASCORBIC ACID 500 MG TAB PO SCH ×2 (09:11→21:36)
[2021-02-02] MEDS: ZINC SULFATE 220 MG CAP PO SCH ×2 (09:11→21:36)
[2021-02-02 09:47] LABS: Alanine Aminotransferase 16 units/L (7-56); Albumin 3.4 g/dL (3.9-5); Blood Urea Nitrogen 16 mg/dL (7-17); Calcium 8.8 mg/dL (8.4-10.2); Hemolysis Index 2
[2021-02-02 09:48] LABS: BUN/Creatinine Ratio 32
--- NOTE | 2021-02-02 13:09 | Progress Note ---
Assessment and Plan Cultures: SARS CoV2 PCR: Positive 01/30/2021 blood culture: No growth Urine culture: No growth A/P: 76-year-old female with history of MS, does not take any meds was admitted to the hospital with complaints of not feeling well and having a fever: #COVID-19: Not hypoxic, chest x-ray without any obvious evidence of pneumonia. Has been symptomatic with fever and generalized malaise. Labs revealed mild leukopenia, D-dimer 682, ferritin 418, CRP 2.8, procalcitonin 0.05. #Multiple sclerosis: Not on any meds #Question of UTI: Patient has no urinary symptoms. Recs: -patient is unable to ambulate due to MS, unable to obtain ambulatory saturations, given fever and high risk of progression to severe COVID-19, was started on remdesivir and steroids, D2 -prophylactic anticoagulation based on d-dimer per hospital protocol -Monitor inflammatory markers, orders placed for AM, if improved and she remains on room air, consider discharge tomorrow Cadence Stevens MD, FACP [facility] O: [phone] F: [phone] Subjective Date of service: 02/02/21 Interval history: Afebrile. Remains on room air. Unable to ambulate due to MS. Objective - Exam Narrative Exam: Physical Exam: Constitutional: Alert, cooperative. No acute distress Head, Ears, Nose: Normocephalic, atraumatic. External ears, nose normal Eyes: Conjunctivae/corneas clear. No icterus. No ptosis. Neck: Supple, no meningeal signs Cardiovascular: S1, S2 normal. Respiratory: Good air entry, clear to auscultation bilaterally GI: Soft, non-tender; bowel sounds normal. No peritoneal signs Musculoskeletal: No pedal edema, no cyanosis. Skin: No rash or abscess Hem/Lymphatic: No palpable cervical or supraclavicular nodes. No lymphangitis Psych: Mood ok. Affect normal Neurological: Awake, alert, oriented. No gross abnormality - Constitutional Vitals: Vital Signs Temp Pulse Resp BP Pulse Ox 99.6 F 100 H 18 135/69 95 02/02/21 11:19 02/02/21 11:19 02/02/21 11:19 02/02/21 11:19 02/02/21 11:19 Temperature -Last 24 Hours Temperature 99.6 F Temperature 98.7 F Temperature 98.5 F - Labs CBC & Chem 7: 01/31/21 07:45 02/02/21 08:55 Labs: Abnormal lab results 02/02/21 Range/Units 08:55 Potassium 3.5 L (3.6-5.0) mmol/L Creatinine 0.5 L (0.6-1.2) mg/dL Total Protein 6.2 L (6.3-8.2) g/dL Albumin 3.4 L (3.9-5) g/dL
--- NOTE | 2021-02-02 13:12 | Progress Note ---
Assessment and Plan Assessment and plan: (1) Urinary tract infection Current Visit: Yes Status: Acute Qualifiers: Encounter type: initial encounter Plan to address problem: IV antibiotic therapy, supportive care, urinalysis, CBC, repeat CBC in a.m. (2) Coronavirus infection Current Visit: Yes Status: Acute Plan to address problem: Coronavirus protocol: IV steroid therapy, supplemental oxygen, pulse oximetry, vitamin C therapy, vitamin D therapy, zinc therapy, supportive care. Prophylactic anticoagulation (3) Systemic inflammatory response syndrome Current Visit: Yes Status: Acute Plan to address problem: IV antibiotic therapy, supportive care, CBC, repeat CBC in a.m. (4) Vascular dementia Current Visit: Yes Status: Acute Qualifiers: Dementia behavioral disturbance: without behavioral disturbance Qualified Code(s): F01.50 - Vascular dementia without behavioral disturbance Plan to address problem: Verbal prompting, verbal redirection, supportive care, benzodiazepine therapy as clinically indicated (5) Cerebral atherosclerosis Current Visit: Yes Status: Acute Plan to address problem: Risk factor reduction, antiplatelet therapy as clinically indicated (6) Volume depletion Current Visit: Yes Status: Acute Plan to address problem: IV fluid resuscitation therapy, BMP, repeat BMP in a.m., monitor fluid balance, strict I's/O, (7) DVT prophylaxis Current Visit: Yes Status: Acute Plan to address problem: SCD to bilateral lower extremities while in bed, prophylactic anticoagulation (8) Advance care planning Current Visit: Yes Status: Acute Plan to address problem: Disease education conducted, care plan discussed, diagnoses discussed, patient is full code, patient knowledges understanding agreement with care plan, +30 minutes. 01/31/21 Patient initially presented with generalized weakness cough, shortness of breath. She is diagnosed with Covid-19 infection, UTI. Patient doing better. She is not on Oxygen. I discussed case with ID Physician. Likely dc home tomorrow. 02/01/21 Patient diagnosed with Covid-19 infection. Today had fever of 102.6. I discussed with ID Physician. Patient started on Dexamethasone and Remdesivir today. patient has multiple sclerosis and not ambulatory to check ambulatory pulse ox, but started on meds to prevent worsening. 02/02/30 patient with Covid-19 infection. Had fever of 102.6 yesterday so started on medications. Poss discharge tomorrow if afebrile. History Interval history: Patient presented with generalized weakness, cough, fever, SOB, diagnosed with Covid-19 infection Fever of 102.6 yesterday, 02/01, now resolved Hospitalist Physical - Physical exam Narrative exam: Gen: Not in acute distress, lying in bed HEENT: Normocephalic, atraumatic Neck : supple, no JVD Heart:S1 and S2 reg, no murmurs, rubs or gallop Lungs: clear to auscultation bilaterally, no wheeze Abd: Soft , NT, non distended, normal bowel sounds Ext: No edema, no clubbing, no cyanosis Neuro: Awake, alert, oriented, moves all ext - Constitutional Vitals: Temp Pulse Resp BP Pulse Ox 99.6 F 100 H 18 135/69 95 02/02/21 11:19 02/02/21 11:19 02/02/21 11:19 02/02/21 11:19 02/02/21 11:19 Results - Labs CBC & Chem 7: 01/31/21 07:45 02/02/21 08:55 Labs: Laboratory Last Values WBC 3.7 K/mm3 (4.5-11.0) L 01/31/21 07:45 RBC 4.56 M/mm3 (3.65-5.03) 01/31/21 07:45 Hgb 13.2 gm/dl (10.1-14.3) 01/31/21 07:45 Hct 38.3 % (30.3-42.9) 01/31/21 07:45 MCV 84 fl (79-97) 01/31/21 07:45 MCH 29 pg (28-32) 01/31/21 07:45 MCHC 34 % (30-34) 01/31/21 07:45 RDW 13.8 % (13.2-15.2) 01/31/21 07:45 Plt Count 183 K/mm3 (140-440) 01/31/21 07:45 Lymph % (Auto) 17.0 % (13.4-35.0) 01/31/21 07:45 [place] % (Auto) 5.8 % (0.0-7.3) 01/31/21 07:45 Eos % (Auto) 0.1 % (0.0-4.3) 01/31/21 07:45 Baso % (Auto) 0.3 % (0.0-1.8) 01/31/21 07:45 Lymph # (Auto) 0.6 K/mm3 (1.2-5.4) L 01/31/21 07:45 [place] # (Auto) 0.2 K/mm3 (0.0-0.8) 01/31/21 07:45 Eos # (Auto) 0.0 K/mm3 (0.0-0.4) 01/31/21 07:45 Baso # (Auto) 0.0 K/mm3 (0.0-0.1) 01/31/21 07:45 Seg Neutrophils % 76.8 % (40.0-70.0) H 01/31/21 07:45 Seg Neutrophils # 2.8 K/mm3 (1.8-7.7) 01/31/21 07:45 D-Dimer 682.15 ng/mlDDU (0-234) H 01/30/21 10:03 Sodium 141 mmol/L (137-145) 02/02/21 08:55 Potassium 3.5 mmol/L (3.6-5.0) L 02/02/21 08:55 Chloride 103.3 mmol/L (98-107) 02/02/21 08:55 Carbon Dioxide 24 mmol/L (22-30) 02/02/21 08:55 Anion Gap 17 mmol/L 02/02/21 08:55 BUN 16 mg/dL (7-17) 02/02/21 08:55 Creatinine 0.5 mg/dL (0.6-1.2) L 02/02/21 08:55 Estimated GFR > 60 ml/min 02/02/21 08:55 BUN/Creatinine Ratio 32 % 02/02/21 08:55 Glucose 85 mg/dL (65-100) 02/02/21 08:55 Lactic Acid < 0.20 mmol/L (0.7-2.0) L 01/30/21 12:06 Calcium 8.8 mg/dL (8.4-10.2) 02/02/21 08:55 Ferritin 418.7 ng/mL (10.0-200.0) H 01/30/21 10:03 Total Bilirubin 0.40 mg/dL (0.1-1.2) 02/02/21 08:55 AST 25 units/L (5-40) 02/02/21 08:55 ALT 16 units/L (7-56) 02/02/21 08:55 Alkaline Phosphatase 49 units/L (35-129) 02/02/21 08:55 Lactate Dehydrogenase 246 units/L (91-180) H 01/30/21 10:03 Lactate Dehydrogenase 268 units/L (91-180) H 01/30/21 10:03 C-Reactive Protein 2.60 mg/dL (0.00-1.30) H 01/30/21 10:03 C-Reactive Protein 2.80 mg/dL (0.00-1.30) H 01/30/21 10:03 Total Protein 6.2 g/dL (6.3-8.2) L 02/02/21 08:55 Albumin 3.4 g/dL (3.9-5) L 02/02/21 08:55 Albumin/Globulin Ratio 1.2 % 02/02/21 08:55 Procalcitonin < 0.05 ng/mL (<0.15) 02/02/21 01:46 Urine Color Yellow (Yellow) 01/30/21 12:02 Urine Turbidity Slightly-cloudy (Clear) 01/30/21 12:02 Urine pH 5.0 (5.0-7.0) 01/30/21 12:02 Ur Specific [place] 1.025 (1.003-1.030) 01/30/21 12:02 Urine Protein 100 mg/dl mg/dL (Negative) 01/30/21 12:02 Urine Glucose (UA) Neg mg/dL (Negative) 01/30/21 12:02 Urine Ketones 20 mg/dL (Negative) 01/30/21 12:02 Urine Blood Sm (Negative) 01/30/21 12:02 Urine Nitrite Neg (Negative) 01/30/21 12:02 Urine Bilirubin Neg (Negative) 01/30/21 12:02 Urine Urobilinogen < 2.0 mg/dL (<2.0) 01/30/21 12:02 Ur Leukocyte Esterase Tr (Negative) 01/30/21 12:02 Urine WBC (Auto) 19.0 /HPF (0.0-6.0) H 01/30/21 12:02 Urine RBC (Auto) 1.0 /HPF (0.0-6.0) 01/30/21 12:02 U Epithel Cells (Auto) 1.0 /HPF (0-13.0) 01/30/21 12:02 Urine Bacteria (Auto) 1+ /HPF (Negative) 01/30/21 12:02 Urine Mucus Few /HPF 01/30/21 12:02 Coronavirus (PCR) Positive (Negative) A 01/30/21 Unknown Microbiology: Microbiology 01/30/21 10:03 Peripheral/Venous Blood Culture - Preliminary NO GROWTH AFTER 72 HOURS 01/30/21 10:03 Peripheral/Venous Blood Culture - Preliminary NO GROWTH AFTER 72 HOURS 01/30/21 Unknown Urine,Clean Catch Urine Culture - Final NO GROWTH AFTER 48 HOURS Meneses/IV: Voiding Method External Female Catheter Active Medications - Current Medications Current Medications: Generic Name Dose Route Start Last Admin Trade Name Freq PRN Reason Stop Dose Admin Acetaminophen 650 mg 01/30/21 15:45 02/01/21 15:16 Acetaminophen 325 Mg Tab PO 650 mg Q4H PRN Administration Pain MILD(1-3)/Fever >100.5/AYOUB Albuterol 2.5 mg 01/30/21 15:45 Albuterol 2.5 Mg/3 Ml Nebu IH Q4HRT PRN Shortness Of Breath Ascorbic Acid 500 mg 01/30/21 22:00 02/02/21 09:11 Ascorbic Acid 500 Mg Tab PO 500 mg BID CHARLES Administration Cholecalciferol 1,000 unit 02/02/21 10:00 02/02/21 09:11 Cholecalciferol (Vit D3) 1000 Unit (25 Mcg) Tab PO 1,000 unit Q24HR CHARLES Administration Dexamethasone 6 mg 02/01/21 13:00 02/02/21 09:10 Dexamethasone 4 Mg Tab PO 02/10/21 10:01 6 mg DAILY CHARLES Administration Heparin Sodium (Porcine) 5,000 unit 01/30/21 22:00 02/02/21 09:11 Heparin 5,000 Unit/1 Ml Vial SUB-Q 5,000 unit Q12HR CHARLES Administration Hydromorphone HCl 0.5 mg 01/30/21 15:45 Hydromorphone 1 Mg/1 Ml Inj IV Q12H PRN Pain , Severe (7-10) Sodium Chloride 1,000 mls @ 75 mls/hr 01/30/21 15:45 02/01/21 23:05 Nacl 0.9% 1000 Ml IV 75 mls/hr DIRECT CHARLES Administration REMDESIVIR 100 mg/ Sodium 250 mls @ 500 mls/hr 02/02/21 21:00 Chloride IV 02/05/21 21:29 Q24HR@2100 CHARLES Ondansetron HCl 4 mg 01/30/21 15:45 Ondansetron 4 Mg/2 Ml Inj IV Q8H PRN Nausea And Vomiting Oxycodone/Acetaminophen 1 tab 01/30/21 15:45 Oxycodone /Acetaminophen 5-325mg Tab PO Q12H PRN Pain, Moderate (4-6) Sodium Chloride 10 ml 01/30/21 22:00 02/02/21 09:11 Sodium Chloride 0.9% 10 Ml Flush Syringe IV 10 ml BID CHARLES Administration Sodium Chloride 10 ml 01/30/21 15:45 Sodium Chloride 0.9% 10 Ml Flush Syringe IV PRN PRN LINE FLUSH Sodium Chloride 50 ml 02/01/21 15:30 02/01/21 15:05 Sodium Chloride 0.9% 50 Ml Ivpb IV 02/05/21 21:01 50 ml Q24HR@2100 CHARLES Administration Zinc Sulfate 220 mg 01/30/21 22:00 02/02/21 09:11 Zinc Sulfate 220 Mg Cap PO 220 mg BID CHARLES Administration
[2021-02-02] MEDS ORDERED: POTASSIUM CHLORIDE ER 20 MEQ TAB PO SCH (14:30)
[2021-02-02] MEDS: REMDESIVIR 100 MG in SODIUM CHLORIDE 0.9% 250ML 250 ML IV SCH (21:35)
[2021-02-02] MEDS: SODIUM CHLORIDE 0.9% 50 ML IVPB IV SCH (21:36)
[2021-02-02] MEDS: SODIUM CHLORIDE 0.9% 1000 ML 1,000 ML IV SCH (21:42)
[2021-02-03] MEDS: HEPARIN 5,000 UNIT/1 ML VIAL SUB-Q SCH ×2 (09:03→21:51)
[2021-02-03] MEDS: CHOLECALCIFEROL (VIT D3) 1000 UNIT (25 mcg) TAB PO SCH (09:03)
[2021-02-03] MEDS: ASCORBIC ACID 500 MG TAB PO SCH ×2 (09:03→21:51)
[2021-02-03] MEDS: ZINC SULFATE 220 MG CAP PO SCH ×2 (09:03→21:51)
[2021-02-03] MEDS: DEXAMETHASONE 4 MG TAB PO SCH (09:03)
[2021-02-03 10:58] LABS: Alanine Aminotransferase 14 units/L (7-56); Albumin 3.2 g/dL (3.9-5); Blood Urea Nitrogen 20 mg/dL (7-17); Calcium 8.8 mg/dL (8.4-10.2); Hemolysis Index 1
[2021-02-03 11:03] LABS: BUN/Creatinine Ratio 40
--- NOTE | 2021-02-03 13:44 | Progress Note ---
Assessment and Plan Cultures: SARS CoV2 PCR: Positive 01/30/2021 blood culture: No growth Urine culture: No growth A/P: 76-year-old female with history of MS, does not take any meds was admitted to the hospital with complaints of not feeling well and having a fever: #COVID-19: Not hypoxic, chest x-ray without any obvious evidence of pneumonia. Has been symptomatic with fever and generalized malaise. Labs revealed mild leukopenia, D-dimer 682, ferritin 418, CRP 2.8, procalcitonin 0.05. #Multiple sclerosis: Not on any meds #Question of UTI: Patient has no urinary symptoms. Recs: -remdesivir and steroids, D3 -prophylactic anticoagulation based on d-dimer per hospital protocol -Monitor CRP, orders placed for AM, if improved and she remains on room air, consider discharge tomorrow Cadence Stevens MD, FACP [facility] O: [phone] F: [phone] Subjective Date of service: 02/03/21 Interval history: Afebrile. Not on oxygen, feels well. D-dimer 303, ferritin 928, CRP 5.3 Objective - Exam Narrative Exam: Physical Exam: Constitutional: Alert, cooperative. No acute distress Head, Ears, Nose: Normocephalic, atraumatic. External ears, nose normal Eyes: Conjunctivae/corneas clear. No icterus. No ptosis. Neck: Supple, no meningeal signs Cardiovascular: S1, S2 normal. Respiratory: Good air entry, clear to auscultation bilaterally GI: Soft, non-tender; bowel sounds normal. No peritoneal signs Musculoskeletal: No pedal edema, no cyanosis. Skin: No rash or abscess Hem/Lymphatic: No palpable cervical or supraclavicular nodes. No lymphangitis Psych: Mood ok. Affect normal Neurological: Awake, alert, oriented. No gross abnormality - Constitutional Vitals: Vital Signs Temp Pulse Resp BP Pulse Ox 97.9 F 77 16 128/70 96 02/03/21 03:30 02/03/21 03:30 02/03/21 03:30 02/03/21 03:30 02/03/21 09:03 Temperature -Last 24 Hours Temperature 97.9 F Temperature 97.7 F Temperature 98.0 F - Labs CBC & Chem 7: 01/31/21 07:45 02/03/21 09:50 Labs: Abnormal lab results 02/03/21 02/03/21 02/03/21 Range/Units 09:50 09:50 09:50 D-Dimer 303.87 H (0-234) ng/mlDDU BUN 20 H (7-17) mg/dL Creatinine 0.5 L (0.6-1.2) mg/dL Glucose 113 H (65-100) mg/dL Ferritin 928.1 H (10.0-200.0) ng/mL C-Reactive Protein (0.00-1.30) mg/dL Albumin 3.2 L (3.9-5) g/dL 02/03/21 Range/Units 09:50 D-Dimer (0-234) ng/mlDDU BUN (7-17) mg/dL Creatinine (0.6-1.2) mg/dL Glucose (65-100) mg/dL Ferritin (10.0-200.0) ng/mL C-Reactive Protein 5.30 H (0.00-1.30) mg/dL Albumin (3.9-5) g/dL
--- NOTE | 2021-02-03 13:54 | Progress Note ---
Assessment and Plan Assessment and plan: (1) Urinary tract infection Current Visit: Yes Status: Acute Qualifiers: Encounter type: initial encounter Plan to address problem: IV antibiotic therapy, supportive care, urinalysis, CBC, repeat CBC in a.m. (2) Coronavirus infection Current Visit: Yes Status: Acute Plan to address problem: Coronavirus protocol: IV steroid therapy, supplemental oxygen, pulse oximetry, vitamin C therapy, vitamin D therapy, zinc therapy, supportive care. Prophylactic anticoagulation (3) Systemic inflammatory response syndrome Current Visit: Yes Status: Acute Plan to address problem: IV antibiotic therapy, supportive care, CBC, repeat CBC in a.m. (4) Vascular dementia Current Visit: Yes Status: Acute Qualifiers: Dementia behavioral disturbance: without behavioral disturbance Qualified Code(s): F01.50 - Vascular dementia without behavioral disturbance Plan to address problem: Verbal prompting, verbal redirection, supportive care, benzodiazepine therapy as clinically indicated (5) Cerebral atherosclerosis Current Visit: Yes Status: Acute Plan to address problem: Risk factor reduction, antiplatelet therapy as clinically indicated (6) Volume depletion Current Visit: Yes Status: Acute Plan to address problem: IV fluid resuscitation therapy, BMP, repeat BMP in a.m., monitor fluid balance, strict I's/O, (7) DVT prophylaxis Current Visit: Yes Status: Acute Plan to address problem: SCD to bilateral lower extremities while in bed, prophylactic anticoagulation (8) Advance care planning Current Visit: Yes Status: Acute Plan to address problem: Disease education conducted, care plan discussed, diagnoses discussed, patient is full code, patient knowledges understanding agreement with care plan, +30 minutes. 01/31/21 Patient initially presented with generalized weakness cough, shortness of breath. She is diagnosed with Covid-19 infection, UTI. Patient doing better. She is not on Oxygen. I discussed case with ID Physician. Likely dc home tomorrow. 02/01/21 Patient diagnosed with Covid-19 infection. Today had fever of 102.6. I discussed with ID Physician. Patient started on Dexamethasone and Remdesivir today. patient has multiple sclerosis and not ambulatory to check ambulatory pulse ox, but started on meds to prevent worsening. 02/02/30 patient with Covid-19 infection. Had fever of 102.6 yesterday so started on medications. Poss discharge tomorrow if afebrile. 02/03/30 Patient with Covid-19, on Remdesevir. Fever had resolved. Poss dc home tomorrow if inflammatory markers down, as per ID History Interval history: Patient presented with generalized weakness, cough, fever, SOB, diagnosed with Covid-19 infection Fever resolved Hospitalist Physical - Physical exam Narrative exam: Gen: Not in acute distress, lying in bed HEENT: Normocephalic, atraumatic Neck : supple, no JVD Heart:S1 and S2 reg, no murmurs, rubs or gallop Lungs: clear to auscultation bilaterally, no wheeze Abd: Soft , NT, non distended, normal bowel sounds Ext: No edema, no clubbing, no cyanosis Neuro: Awake, alert, oriented, moves all ext - Constitutional Vitals: Temp Pulse Resp BP Pulse Ox 97.9 F 77 16 128/70 96 02/03/21 03:30 02/03/21 03:30 02/03/21 03:30 02/03/21 03:30 02/03/21 09:03 Results - Labs CBC & Chem 7: 01/31/21 07:45 02/03/21 09:50 Labs: Laboratory Last Values WBC 3.7 K/mm3 (4.5-11.0) L 01/31/21 07:45 RBC 4.56 M/mm3 (3.65-5.03) 01/31/21 07:45 Hgb 13.2 gm/dl (10.1-14.3) 01/31/21 07:45 Hct 38.3 % (30.3-42.9) 01/31/21 07:45 MCV 84 fl (79-97) 01/31/21 07:45 MCH 29 pg (28-32) 01/31/21 07:45 MCHC 34 % (30-34) 01/31/21 07:45 RDW 13.8 % (13.2-15.2) 01/31/21 07:45 Plt Count 183 K/mm3 (140-440) 01/31/21 07:45 Lymph % (Auto) 17.0 % (13.4-35.0) 01/31/21 07:45 [place] % (Auto) 5.8 % (0.0-7.3) 01/31/21 07:45 Eos % (Auto) 0.1 % (0.0-4.3) 01/31/21 07:45 Baso % (Auto) 0.3 % (0.0-1.8) 01/31/21 07:45 Lymph # (Auto) 0.6 K/mm3 (1.2-5.4) L 01/31/21 07:45 [place] # (Auto) 0.2 K/mm3 (0.0-0.8) 01/31/21 07:45 Eos # (Auto) 0.0 K/mm3 (0.0-0.4) 01/31/21 07:45 Baso # (Auto) 0.0 K/mm3 (0.0-0.1) 01/31/21 07:45 Seg Neutrophils % 76.8 % (40.0-70.0) H 01/31/21 07:45 Seg Neutrophils # 2.8 K/mm3 (1.8-7.7) 01/31/21 07:45 D-Dimer 303.87 ng/mlDDU (0-234) H 02/03/21 09:50 Sodium 142 mmol/L (137-145) 02/03/21 09:50 Potassium 3.6 mmol/L (3.6-5.0) 02/03/21 09:50 Chloride 106.5 mmol/L (98-107) 02/03/21 09:50 Carbon Dioxide 23 mmol/L (22-30) 02/03/21 09:50 Anion Gap 16 mmol/L 02/03/21 09:50 BUN 20 mg/dL (7-17) H 02/03/21 09:50 Creatinine 0.5 mg/dL (0.6-1.2) L 02/03/21 09:50 Estimated GFR > 60 ml/min 02/03/21 09:50 BUN/Creatinine Ratio 40 % 02/03/21 09:50 Glucose 113 mg/dL (65-100) H 02/03/21 09:50 Lactic Acid < 0.20 mmol/L (0.7-2.0) L 01/30/21 12:06 Calcium 8.8 mg/dL (8.4-10.2) 02/03/21 09:50 Ferritin 928.1 ng/mL (10.0-200.0) H 02/03/21 09:50 Total Bilirubin 0.40 mg/dL (0.1-1.2) 02/03/21 09:50 AST 18 units/L (5-40) 02/03/21 09:50 ALT 14 units/L (7-56) 02/03/21 09:50 Alkaline Phosphatase 55 units/L (35-129) 02/03/21 09:50 Lactate Dehydrogenase 246 units/L (91-180) H 01/30/21 10:03 Lactate Dehydrogenase 268 units/L (91-180) H 01/30/21 10:03 C-Reactive Protein 5.30 mg/dL (0.00-1.30) H 02/03/21 09:50 Total Protein 6.4 g/dL (6.3-8.2) 02/03/21 09:50 Albumin 3.2 g/dL (3.9-5) L 02/03/21 09:50 Albumin/Globulin Ratio 1.0 % 02/03/21 09:50 Procalcitonin < 0.05 ng/mL (<0.15) 02/02/21 01:46 Urine Color Yellow (Yellow) 01/30/21 12:02 Urine Turbidity Slightly-cloudy (Clear) 01/30/21 12:02 Urine pH 5.0 (5.0-7.0) 01/30/21 12:02 Ur Specific [place] 1.025 (1.003-1.030) 01/30/21 12:02 Urine Protein 100 mg/dl mg/dL (Negative) 01/30/21 12:02 Urine Glucose (UA) Neg mg/dL (Negative) 01/30/21 12:02 Urine Ketones 20 mg/dL (Negative) 01/30/21 12:02 Urine Blood Sm (Negative) 01/30/21 12:02 Urine Nitrite Neg (Negative) 01/30/21 12:02 Urine Bilirubin Neg (Negative) 01/30/21 12:02 Urine Urobilinogen < 2.0 mg/dL (<2.0) 01/30/21 12:02 Ur Leukocyte Esterase Tr (Negative) 01/30/21 12:02 Urine WBC (Auto) 19.0 /HPF (0.0-6.0) H 01/30/21 12:02 Urine RBC (Auto) 1.0 /HPF (0.0-6.0) 01/30/21 12:02 U Epithel Cells (Auto) 1.0 /HPF (0-13.0) 01/30/21 12:02 Urine Bacteria (Auto) 1+ /HPF (Negative) 01/30/21 12:02 Urine Mucus Few /HPF 01/30/21 12:02 Coronavirus (PCR) Positive (Negative) A 01/30/21 Unknown Microbiology: Microbiology 01/30/21 10:03 Peripheral/Venous Blood Culture - Preliminary NO GROWTH AFTER 4 DAYS 01/30/21 10:03 Peripheral/Venous Blood Culture - Preliminary NO GROWTH AFTER 4 DAYS Meneses/IV: Voiding Method External Female Catheter Active Medications - Current Medications Current Medications: Generic Name Dose Route Start Last Admin Trade Name Freq PRN Reason Stop Dose Admin Acetaminophen 650 mg 01/30/21 15:45 02/01/21 15:16 Acetaminophen 325 Mg Tab PO 650 mg Q4H PRN Administration Pain MILD(1-3)/Fever >100.5/AYOUB Albuterol 2.5 mg 01/30/21 15:45 Albuterol 2.5 Mg/3 Ml Nebu IH Q4HRT PRN Shortness Of Breath Ascorbic Acid 500 mg 01/30/21 22:00 02/03/21 09:03 Ascorbic Acid 500 Mg Tab PO 500 mg BID CHARLES Administration Cholecalciferol 1,000 unit 02/02/21 10:00 02/03/21 09:03 Cholecalciferol (Vit D3) 1000 Unit (25 Mcg) Tab PO 1,000 unit Q24HR CHARLES Administration Dexamethasone 6 mg 02/01/21 13:00 02/03/21 09:03 Dexamethasone 4 Mg Tab PO 02/10/21 10:01 6 mg DAILY CHARLES Administration Heparin Sodium (Porcine) 5,000 unit 01/30/21 22:00 02/03/21 09:03 Heparin 5,000 Unit/1 Ml Vial SUB-Q 5,000 unit Q12HR CHARLES Administration Hydromorphone HCl 0.5 mg 01/30/21 15:45 Hydromorphone 1 Mg/1 Ml Inj IV Q12H PRN Pain , Severe (7-10) Sodium Chloride 1,000 mls @ 75 mls/hr 01/30/21 15:45 02/02/21 21:42 Nacl 0.9% 1000 Ml IV 75 mls/hr DIRECT CHARLES Administration REMDESIVIR 100 mg/ Sodium 250 mls @ 500 mls/hr 02/02/21 21:00 02/03/21 03:09 Chloride IV 02/05/21 21:29 Infused Q24HR@2100 CHARLES Infusion Ondansetron HCl 4 mg 01/30/21 15:45 Ondansetron 4 Mg/2 Ml Inj IV Q8H PRN Nausea And Vomiting Oxycodone/Acetaminophen 1 tab 01/30/21 15:45 Oxycodone /Acetaminophen 5-325mg Tab PO Q12H PRN Pain, Moderate (4-6) Sodium Chloride 10 ml 01/30/21 22:00 02/03/21 09:03 Sodium Chloride 0.9% 10 Ml Flush Syringe IV 10 ml BID CHARLES Administration Sodium Chloride 10 ml 01/30/21 15:45 Sodium Chloride 0.9% 10 Ml Flush Syringe IV PRN PRN LINE FLUSH Sodium Chloride 50 ml 02/01/21 15:30 02/02/21 21:36 Sodium Chloride 0.9% 50 Ml Ivpb IV 02/05/21 21:01 50 ml Q24HR@2100 CHARLES Administration Zinc Sulfate 220 mg 01/30/21 22:00 02/03/21 09:03 Zinc Sulfate 220 Mg Cap PO 220 mg BID CHARLES Administration Nutrition/Malnutrition Assess - Dietary Evaluation Nutrition/Malnutrition Findings: Nutrition Notes Start: 02/03/21 13:03 Freq: Status: Active Protocol: Document 02/03/21 13:03 (Rec: 02/03/21 13:07 [email or web address]) Nutrition Notes Need for Assessment generated from: medicine man Initial or Follow up Assessment Other Pertinent Diagnosis UTI, COVID PUI, SIRS, dementia Current Diet regular Labs/Tests reviewed Pertinent Medications decadron Height 5 ft 7 in Weight 77.11 kg [place] Body Weight (kg) 61.36 BMI 26.6 Weight Status Appropriate Subjective/Other Retail Analyst states pt not eating well for 2 days (<15% meals) but drank 100% of ONS when given. Burn Absent Trauma Absent Current % PO Negligible Minimum of two criteria No physical signs of malnutrition #1 Nutrition Diagnosis Inadequate oral intake Etiology advanced age, dementia As Evidenced by Signs and Symptoms pt eating <15% of meals Is patient on ventilator? No Is Patient Ambulatory and/or Out of Bed No [facility] [id number] Calculation Used for Recommendations George Leblanc Additional Notes Protein: (1-1.2g) 77-94g Fluid: 1 ml/kcal Nutrition Intervention Change Diet Order: continue Add Supplement/Snack (indicate name/kcal Ensure Enlive QID /protein ) Provides kCal: 1,400 Provides Protein (gm) 80 Goal #1 Meet at least 75% of energy and protein needs via PO and ONS Anticipated Discharge Needs: Regular with ONS as needed Follow-Up By: 02/07/21 Additional Comments FU for intakes and ONS tolerance
[2021-02-03] MEDS: REMDESIVIR 100 MG in SODIUM CHLORIDE 0.9% 250ML 250 ML IV SCH (21:51)
[2021-02-03] MEDS: SODIUM CHLORIDE 0.9% 50 ML IVPB IV SCH (21:51)
[2021-02-04] MEDS: SODIUM CHLORIDE 0.9% 1000 ML 1,000 ML IV SCH (05:19)
[2021-02-04 09:09] LABS: Alanine Aminotransferase 13 units/L (7-56); Albumin 2.7 g/dL (3.9-5); Blood Urea Nitrogen 21 mg/dL (7-17); Calcium 8.3 mg/dL (8.4-10.2); Hemolysis Index 3
[2021-02-04 09:13] LABS: BUN/Creatinine Ratio 53
[2021-02-04] MEDS: ASCORBIC ACID 500 MG TAB PO SCH (09:41)
[2021-02-04] MEDS: CHOLECALCIFEROL (VIT D3) 1000 UNIT (25 mcg) TAB PO SCH (09:41)
[2021-02-04] MEDS: DEXAMETHASONE 4 MG TAB PO SCH (09:41)
[2021-02-04] MEDS: ZINC SULFATE 220 MG CAP PO SCH (09:41)
[2021-02-04] MEDS: HEPARIN 5,000 UNIT/1 ML VIAL SUB-Q SCH (09:42)
--- NOTE | 2021-02-04 11:06 | Progress Note ---
Assessment and Plan Cultures: SARS CoV2 PCR: Positive 01/30/2021 blood culture: No growth Urine culture: No growth A/P: 76-year-old female with history of MS, does not take any meds was admitted to the hospital with complaints of not feeling well and having a fever: #COVID-19: Not hypoxic, chest x-ray without any obvious evidence of pneumonia. Has been symptomatic with fever and generalized malaise. Labs revealed mild leukopenia, D-dimer 682, ferritin 418, CRP 2.8, procalcitonin 0.05. #Multiple sclerosis: Not on any meds #Question of UTI: Patient has no urinary symptoms. Recs: -CRP improved and she remains on room air, OK for discharge. Does not need to complete remdesivir. Complete remainder of steroid course on discharge. Cadence Stevens MD, FACP [facility] O: [phone] F: [phone] Subjective Date of service: 02/04/21 Interval history: Afebrile. Remains on room air. CRP improving. Objective - Exam Narrative Exam: Physical Exam: deferred to minimize risk of transmission. Chart reviewed - Constitutional Vitals: Vital Signs Temp Pulse Resp BP Pulse Ox 98.0 F 77 16 146/85 98 02/04/21 01:33 02/04/21 01:33 02/04/21 02:00 02/04/21 01:33 02/04/21 02:00 Temperature -Last 24 Hours Temperature 98.0 F Temperature 97.7 F Temperature 98.0 F - Labs CBC & Chem 7: 01/31/21 07:45 02/04/21 07:05 Labs: Abnormal lab results 02/03/21 02/04/21 02/04/21 Range/Units 09:50 07:05 07:05 Potassium 3.2 L (3.6-5.0) mmol/L BUN 21 H (7-17) mg/dL Creatinine 0.4 L (0.6-1.2) mg/dL Calcium 8.3 L (8.4-10.2) mg/dL Ferritin 928.1 H (10.0-200.0) ng/mL C-Reactive Protein 1.90 H (0.00-1.30) mg/dL Total Protein 4.9 L D (6.3-8.2) g/dL Albumin 2.7 L (3.9-5) g/dL
--- NOTE | 2021-02-04 11:47 | Discharge Summary ---
Providers - Providers Date of Admission: 02/01/21 13:51 Date of discharge: 02/04/21 Attending physician: HIRO MCKENZIE 01/31/21 07:42 Consult to Physician [CONS] Routine Comment: Consulting Provider: KAMINI RIVERA Physician Instructions: Reason For Exam: Covid-19 02/02/21 08:28 Physical Therapy Evaluation and Treat [CONS] Stat Comment: weakness Reason For Exam: Eval and treat 02/02/21 08:29 Occupational Therapy Evaluate and Treat [CONS] Stat Comment: Weakness Reason For Exam: Eval and treat Primary care physician: CEMENT PAVER Hospitalization Condition: Stable Disposition: DC-01 TO HOME OR SELFCARE Core Measure Documentation - Palliative Care Palliative Care/ Comfort Measures: Not Applicable - Core Measures Any of the following diagnoses?: none Exam - Constitutional Vitals: Temp Pulse Resp BP Pulse Ox 98.0 F 77 16 146/85 98 02/04/21 01:33 02/04/21 01:33 02/04/21 02:00 02/04/21 01:33 02/04/21 02:00 Plan Activity: advance as tolerated Diet: regular Plan of Treatment: 1.Follow up with PCP in 1 week Follow up with: PRIMARY CAREMD [Primary Care Provider] - 3-5 Days Prescriptions: Dexamethasone 6 mg PO DAILY #7 tablet Famotidine [Pepcid] 20 mg PO BID #30 tablet
--- NOTE | 2021-02-04 16:14 | Progress Note ---
Assessment and Plan Assessment and plan: (1) Urinary tract infection Current Visit: Yes Status: Acute Qualifiers: Encounter type: initial encounter Plan to address problem: IV antibiotic therapy, supportive care, urinalysis, CBC, repeat CBC in a.m. (2) Coronavirus infection Current Visit: Yes Status: Acute Plan to address problem: Coronavirus protocol: IV steroid therapy, supplemental oxygen, pulse oximetry, vitamin C therapy, vitamin D therapy, zinc therapy, supportive care. Prophylactic anticoagulation (3) Systemic inflammatory response syndrome Current Visit: Yes Status: Acute Plan to address problem: IV antibiotic therapy, supportive care, CBC, repeat CBC in a.m. (4) Vascular dementia Current Visit: Yes Status: Acute Qualifiers: Dementia behavioral disturbance: without behavioral disturbance Qualified Code(s): F01.50 - Vascular dementia without behavioral disturbance Plan to address problem: Verbal prompting, verbal redirection, supportive care, benzodiazepine therapy as clinically indicated (5) Cerebral atherosclerosis Current Visit: Yes Status: Acute Plan to address problem: Risk factor reduction, antiplatelet therapy as clinically indicated (6) Volume depletion Current Visit: Yes Status: Acute Plan to address problem: IV fluid resuscitation therapy, BMP, repeat BMP in a.m., monitor fluid balance, strict I's/O, (7) DVT prophylaxis Current Visit: Yes Status: Acute Plan to address problem: SCD to bilateral lower extremities while in bed, prophylactic anticoagulation (8) Advance care planning Current Visit: Yes Status: Acute Plan to address problem: Disease education conducted, care plan discussed, diagnoses discussed, patient is full code, patient knowledges understanding agreement with care plan, +30 minutes. 01/31/21 Patient initially presented with generalized weakness cough, shortness of breath. She is diagnosed with Covid-19 infection, UTI. Patient doing better. She is not on Oxygen. I discussed case with ID Physician. Likely dc home tomorrow. 02/01/21 Patient diagnosed with Covid-19 infection. Today had fever of 102.6. I discussed with ID Physician. Patient started on Dexamethasone and Remdesivir today. patient has multiple sclerosis and not ambulatory to check ambulatory pulse ox, but started on meds to prevent worsening. 02/02/21 patient with Covid-19 infection. Had fever of 102.6 yesterday so started on medications. Poss discharge tomorrow if afebrile. 02/03/21 Patient with Covid-19, on Remdesevir. Fever had resolved. Poss dc home tomorrow if inflammatory markers down, as per ID 02/04/21 patient with Covid-19 infection. She is stable. Discharge orders put in but son did not come pick her up. History Interval history: Patient presented with generalized weakness, cough, fever, SOB, diagnosed with Covid-19 infection Fever resolved patient discharged but son says not ready for her to come home Hospitalist Physical - Physical exam Narrative exam: Gen: Not in acute distress, lying in bed HEENT: Normocephalic, atraumatic Neck : supple, no JVD Heart:S1 and S2 reg, no murmurs, rubs or gallop Lungs: clear to auscultation bilaterally, no wheeze Abd: Soft , NT, non distended, normal bowel sounds Ext: No edema, no clubbing, no cyanosis Neuro: Awake, alert, oriented, moves all ext - Constitutional Vitals: Temp Pulse Resp BP Pulse Ox 98.0 F 102 H 16 154/86 98 02/04/21 12:14 02/04/21 12:14 02/04/21 14:00 02/04/21 12:14 02/04/21 14:00 Results - Labs CBC & Chem 7: 01/31/21 07:45 02/04/21 07:05 Labs: Laboratory Last Values WBC 3.7 K/mm3 (4.5-11.0) L 01/31/21 07:45 RBC 4.56 M/mm3 (3.65-5.03) 01/31/21 07:45 Hgb 13.2 gm/dl (10.1-14.3) 01/31/21 07:45 Hct 38.3 % (30.3-42.9) 01/31/21 07:45 MCV 84 fl (79-97) 01/31/21 07:45 MCH 29 pg (28-32) 01/31/21 07:45 MCHC 34 % (30-34) 01/31/21 07:45 RDW 13.8 % (13.2-15.2) 01/31/21 07:45 Plt Count 183 K/mm3 (140-440) 01/31/21 07:45 Lymph % (Auto) 17.0 % (13.4-35.0) 01/31/21 07:45 [place] % (Auto) 5.8 % (0.0-7.3) 01/31/21 07:45 Eos % (Auto) 0.1 % (0.0-4.3) 01/31/21 07:45 Baso % (Auto) 0.3 % (0.0-1.8) 01/31/21 07:45 Lymph # (Auto) 0.6 K/mm3 (1.2-5.4) L 01/31/21 07:45 [place] # (Auto) 0.2 K/mm3 (0.0-0.8) 01/31/21 07:45 Eos # (Auto) 0.0 K/mm3 (0.0-0.4) 01/31/21 07:45 Baso # (Auto) 0.0 K/mm3 (0.0-0.1) 01/31/21 07:45 Seg Neutrophils % 76.8 % (40.0-70.0) H 01/31/21 07:45 Seg Neutrophils # 2.8 K/mm3 (1.8-7.7) 01/31/21 07:45 D-Dimer 303.87 ng/mlDDU (0-234) H 02/03/21 09:50 Sodium 140 mmol/L (137-145) 02/04/21 07:05 Potassium 3.2 mmol/L (3.6-5.0) L 02/04/21 07:05 Chloride 106.2 mmol/L (98-107) 02/04/21 07:05 Carbon Dioxide 24 mmol/L (22-30) 02/04/21 07:05 Anion Gap 13 mmol/L 02/04/21 07:05 BUN 21 mg/dL (7-17) H 02/04/21 07:05 Creatinine 0.4 mg/dL (0.6-1.2) L 02/04/21 07:05 Estimated GFR > 60 ml/min 02/04/21 07:05 BUN/Creatinine Ratio 53 % 02/04/21 07:05 Glucose 89 mg/dL (65-100) 02/04/21 07:05 Lactic Acid < 0.20 mmol/L (0.7-2.0) L 01/30/21 12:06 Calcium 8.3 mg/dL (8.4-10.2) L 02/04/21 07:05 Ferritin 928.1 ng/mL (10.0-200.0) H 02/03/21 09:50 Total Bilirubin 0.30 mg/dL (0.1-1.2) 02/04/21 07:05 AST 18 units/L (5-40) 02/04/21 07:05 ALT 13 units/L (7-56) 02/04/21 07:05 Alkaline Phosphatase 43 units/L (35-129) 02/04/21 07:05 Lactate Dehydrogenase 246 units/L (91-180) H 01/30/21 10:03 Lactate Dehydrogenase 268 units/L (91-180) H 01/30/21 10:03 C-Reactive Protein 1.90 mg/dL (0.00-1.30) H 02/04/21 07:05 Total Protein 4.9 g/dL (6.3-8.2) L D 02/04/21 07:05 Albumin 2.7 g/dL (3.9-5) L 02/04/21 07:05 Albumin/Globulin Ratio 1.2 % 02/04/21 07:05 Procalcitonin < 0.05 ng/mL (<0.15) 02/02/21 01:46 Urine Color Yellow (Yellow) 01/30/21 12:02 Urine Turbidity Slightly-cloudy (Clear) 01/30/21 12:02 Urine pH 5.0 (5.0-7.0) 01/30/21 12:02 Ur Specific [place] 1.025 (1.003-1.030) 01/30/21 12:02 Urine Protein 100 mg/dl mg/dL (Negative) 01/30/21 12:02 Urine Glucose (UA) Neg mg/dL (Negative) 01/30/21 12:02 Urine Ketones 20 mg/dL (Negative) 01/30/21 12:02 Urine Blood Sm (Negative) 01/30/21 12:02 Urine Nitrite Neg (Negative) 01/30/21 12:02 Urine Bilirubin Neg (Negative) 01/30/21 12:02 Urine Urobilinogen < 2.0 mg/dL (<2.0) 01/30/21 12:02 Ur Leukocyte Esterase Tr (Negative) 01/30/21 12:02 Urine WBC (Auto) 19.0 /HPF (0.0-6.0) H 01/30/21 12:02 Urine RBC (Auto) 1.0 /HPF (0.0-6.0) 01/30/21 12:02 U Epithel Cells (Auto) 1.0 /HPF (0-13.0) 01/30/21 12:02 Urine Bacteria (Auto) 1+ /HPF (Negative) 01/30/21 12:02 Urine Mucus Few /HPF 01/30/21 12:02 Coronavirus (PCR) Positive (Negative) A 01/30/21 Unknown Microbiology: Microbiology 01/30/21 10:03 Peripheral/Venous Blood Culture - Final NO GROWTH AFTER 5 DAYS 01/30/21 10:03 Peripheral/Venous Blood Culture - Final NO GROWTH AFTER 5 DAYS Meneses/IV: Voiding Method External Female Catheter Active Medications - Current Medications Current Medications: Generic Name Dose Route Start Last Admin Trade Name Freq PRN Reason Stop Dose Admin Acetaminophen 650 mg 01/30/21 15:45 02/01/21 15:16 Acetaminophen 325 Mg Tab PO 650 mg Q4H PRN Administration Pain MILD(1-3)/Fever >100.5/AYOUB Albuterol 2.5 mg 01/30/21 15:45 Albuterol 2.5 Mg/3 Ml Nebu IH Q4HRT PRN Shortness Of Breath Ascorbic Acid 500 mg 01/30/21 22:00 02/04/21 09:41 Ascorbic Acid 500 Mg Tab PO 500 mg BID CHARLES Administration Cholecalciferol 1,000 unit 02/02/21 10:00 02/04/21 09:41 Cholecalciferol (Vit D3) 1000 Unit (25 Mcg) Tab PO 1,000 unit Q24HR CHARLES Administration Dexamethasone 6 mg 02/01/21 13:00 02/04/21 09:41 Dexamethasone 4 Mg Tab PO 02/10/21 10:01 6 mg DAILY CHARLES Administration Heparin Sodium (Porcine) 5,000 unit 01/30/21 22:00 02/04/21 09:42 Heparin 5,000 Unit/1 Ml Vial SUB-Q 5,000 unit Q12HR CHARLES Administration Hydromorphone HCl 0.5 mg 01/30/21 15:45 Hydromorphone 1 Mg/1 Ml Inj IV Q12H PRN Pain , Severe (7-10) Sodium Chloride 1,000 mls @ 75 mls/hr 01/30/21 15:45 02/04/21 05:19 Nacl 0.9% 1000 Ml IV 75 mls/hr DIRECT CHARLES Administration REMDESIVIR 100 mg/ Sodium 250 mls @ 500 mls/hr 02/02/21 21:00 02/03/21 23:01 Chloride IV 02/05/21 21:29 Infused Q24HR@2100 CHARLES Infusion Ondansetron HCl 4 mg 01/30/21 15:45 Ondansetron 4 Mg/2 Ml Inj IV Q8H PRN Nausea And Vomiting Oxycodone/Acetaminophen 1 tab 01/30/21 15:45 Oxycodone /Acetaminophen 5-325mg Tab PO Q12H PRN Pain, Moderate (4-6) Sodium Chloride 10 ml 01/30/21 22:00 02/04/21 09:42 Sodium Chloride 0.9% 10 Ml Flush Syringe IV 10 ml BID CHARLES Administration Sodium Chloride 10 ml 01/30/21 15:45 Sodium Chloride 0.9% 10 Ml Flush Syringe IV PRN PRN LINE FLUSH Sodium Chloride 50 ml 02/01/21 15:30 02/03/21 21:51 Sodium Chloride 0.9% 50 Ml Ivpb IV 02/05/21 21:01 50 ml Q24HR@2100 CHARLES Administration Zinc Sulfate 220 mg 01/30/21 22:00 02/04/21 09:41 Zinc Sulfate 220 Mg Cap PO 220 mg BID CHARLES Administration Nutrition/Malnutrition Assess - Dietary Evaluation Nutrition/Malnutrition Findings: Nutrition Notes Start: 02/03/21 13:03 Freq: Status: Active Protocol: Document 02/03/21 13:03 SAIRA (Rec: 02/03/21 13:07 SAIRA [id number]) Nutrition Notes Need for 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 Burn Absent Trauma Absent Current % PO Negligible Minimum of two criteria No physical signs of malnutrition #1 Nutrition Diagnosis Inadequate oral intake Etiology advanced age, dementia As Evidenced by Signs and Symptoms pt eating <15% of meals Is patient on ventilator? No Is Patient Ambulatory and/or Out of Bed No REE-([facility] [place]-confined to bed) 7065.660 Calculation Used for Recommendations [facility] Additional Notes Protein: (1-1.2g) 77-94g Fluid: 1 ml/kcal Nutrition Intervention Change Diet Order: continue Add Supplement/Snack (indicate name/kcal Ensure Enlive QID /protein ) Provides kCal: 1,400 Provides Protein (gm) 80 Goal #1 Meet at least 75% of energy and protein needs via PO and ONS Anticipated Discharge Needs: Regular with ONS as needed Follow-Up By: 02/07/21 Additional Comments FU for intakes and ONS tolerance
[2021-02-05] MEDS: REMDESIVIR 100 MG in SODIUM CHLORIDE 0.9% 250ML 250 ML IV SCH ×2 (00:22→22:44)
[2021-02-05] MEDS: ZINC SULFATE 220 MG CAP PO SCH ×3 (03:22→22:44)
[2021-02-05] MEDS: HEPARIN 5,000 UNIT/1 ML VIAL SUB-Q SCH ×3 (03:22→22:44)
[2021-02-05] MEDS: ASCORBIC ACID 500 MG TAB PO SCH ×3 (03:22→22:44)
[2021-02-05] MEDS: SODIUM CHLORIDE 0.9% 50 ML IVPB IV SCH ×2 (03:23→22:44)
[2021-02-05] MEDS: SODIUM CHLORIDE 0.9% 1000 ML 1,000 ML IV SCH (03:33)
--- NOTE | 2021-02-05 08:21 | Event Note ---
Date: 02/04/21 Patient stable for discharge, orders put in but son refused to come pick her up
[2021-02-05] MEDS: CHOLECALCIFEROL (VIT D3) 1000 UNIT (25 mcg) TAB PO SCH (10:52)
[2021-02-05] MEDS: DEXAMETHASONE 4 MG TAB PO SCH (10:52)
[2021-02-05] MEDS ORDERED: POTASSIUM CHLORIDE ER 20 MEQ TAB PO ONE (11:00)
[2021-02-05] MEDS: POTASSIUM CHLORIDE ER 20 MEQ TAB PO ONE ×2 (11:08→11:10)
--- NOTE | 2021-02-05 12:07 | Progress Note ---
Assessment and Plan Assessment and plan: (1) Urinary tract infection Current Visit: Yes Status: Acute Qualifiers: Encounter type: initial encounter Plan to address problem: IV antibiotic therapy, supportive care, urinalysis, CBC, repeat CBC in a.m. (2) Coronavirus infection Current Visit: Yes Status: Acute Plan to address problem: Coronavirus protocol: IV steroid therapy, supplemental oxygen, pulse oximetry, vitamin C therapy, vitamin D therapy, zinc therapy, supportive care. Prophylactic anticoagulation (3) Systemic inflammatory response syndrome Current Visit: Yes Status: Acute Plan to address problem: IV antibiotic therapy, supportive care, CBC, repeat CBC in a.m. (4) Vascular dementia Current Visit: Yes Status: Acute Qualifiers: Dementia behavioral disturbance: without behavioral disturbance Qualified Code(s): F01.50 - Vascular dementia without behavioral disturbance Plan to address problem: Verbal prompting, verbal redirection, supportive care, benzodiazepine therapy as clinically indicated (5) Cerebral atherosclerosis Current Visit: Yes Status: Acute Plan to address problem: Risk factor reduction, antiplatelet therapy as clinically indicated (6) Volume depletion Current Visit: Yes Status: Acute Plan to address problem: IV fluid resuscitation therapy, BMP, repeat BMP in a.m., monitor fluid balance, strict I's/O, (7) DVT prophylaxis Current Visit: Yes Status: Acute Plan to address problem: SCD to bilateral lower extremities while in bed, prophylactic anticoagulation (8) Advance care planning Current Visit: Yes Status: Acute Plan to address problem: Disease education conducted, care plan discussed, diagnoses discussed, patient is full code, patient knowledges understanding agreement with care plan, +30 minutes. 01/31/21 Patient initially presented with generalized weakness cough, shortness of breath. She is diagnosed with Covid-19 infection, UTI. Patient doing better. She is not on Oxygen. I discussed case with ID Physician. Likely dc home tomorrow. 02/01/21 Patient diagnosed with Covid-19 infection. Today had fever of 102.6. I discussed with ID Physician. Patient started on Dexamethasone and Remdesivir today. patient has multiple sclerosis and not ambulatory to check ambulatory pulse ox, but started on meds to prevent worsening. 02/02/21 patient with Covid-19 infection. Had fever of 102.6 yesterday so started on medications. Poss discharge tomorrow if afebrile. 02/03/21 Patient with Covid-19, on Remdesevir. Fever had resolved. Poss dc home tomorrow if inflammatory markers down, as per ID 02/04/21 Patient with Covid-19 infection. She is stable. Discharge orders put in but son did not come pick her up. 02/05/21 Patient with Covid-19 infection. She is medically stable for discharge. Discharge orders put in but son did not come pick her up. Appealed discharge. correctional casework specialist aware. History Interval history: Patient presented with generalized weakness, cough, fever, SOB, diagnosed with Covid-19 infection Fever resolved patient discharged but son says not ready for her to come home Hospitalist Physical - Physical exam Narrative exam: Gen: Not in acute distress, lying in bed HEENT: Normocephalic, atraumatic Neck : supple, no JVD Heart:S1 and S2 reg, no murmurs, rubs or gallop Lungs: clear to auscultation bilaterally, no wheeze Abd: Soft , NT, non distended, normal bowel sounds Ext: No edema, no clubbing, no cyanosis Neuro: Awake, alert, oriented, moves all ext - Constitutional Vitals: Temp Pulse Resp BP Pulse Ox 97.4 F L 81 16 150/78 90 02/05/21 04:24 02/05/21 04:24 02/05/21 04:24 02/05/21 04:24 02/05/21 04:24 Results - Labs CBC & Chem 7: 01/31/21 07:45 02/04/21 07:05 Labs: Laboratory Last Values WBC 3.7 K/mm3 (4.5-11.0) L 01/31/21 07:45 RBC 4.56 M/mm3 (3.65-5.03) 01/31/21 07:45 Hgb 13.2 gm/dl (10.1-14.3) 01/31/21 07:45 Hct 38.3 % (30.3-42.9) 01/31/21 07:45 MCV 84 fl (79-97) 01/31/21 07:45 MCH 29 pg (28-32) 01/31/21 07:45 MCHC 34 % (30-34) 01/31/21 07:45 RDW 13.8 % (13.2-15.2) 01/31/21 07:45 Plt Count 183 K/mm3 (140-440) 01/31/21 07:45 Lymph % (Auto) 17.0 % (13.4-35.0) 01/31/21 07:45 [place] % (Auto) 5.8 % (0.0-7.3) 01/31/21 07:45 Eos % (Auto) 0.1 % (0.0-4.3) 01/31/21 07:45 Baso % (Auto) 0.3 % (0.0-1.8) 01/31/21 07:45 Lymph # (Auto) 0.6 K/mm3 (1.2-5.4) L 01/31/21 07:45 [place] # (Auto) 0.2 K/mm3 (0.0-0.8) 01/31/21 07:45 Eos # (Auto) 0.0 K/mm3 (0.0-0.4) 01/31/21 07:45 Baso # (Auto) 0.0 K/mm3 (0.0-0.1) 01/31/21 07:45 Seg Neutrophils % 76.8 % (40.0-70.0) H 01/31/21 07:45 Seg Neutrophils # 2.8 K/mm3 (1.8-7.7) 01/31/21 07:45 D-Dimer 303.87 ng/mlDDU (0-234) H 02/03/21 09:50 Sodium 140 mmol/L (137-145) 02/04/21 07:05 Potassium 3.2 mmol/L (3.6-5.0) L 02/04/21 07:05 Chloride 106.2 mmol/L (98-107) 02/04/21 07:05 Carbon Dioxide 24 mmol/L (22-30) 02/04/21 07:05 Anion Gap 13 mmol/L 02/04/21 07:05 BUN 21 mg/dL (7-17) H 02/04/21 07:05 Creatinine 0.4 mg/dL (0.6-1.2) L 02/04/21 07:05 Estimated GFR > 60 ml/min 02/04/21 07:05 BUN/Creatinine Ratio 53 % 02/04/21 07:05 Glucose 89 mg/dL (65-100) 02/04/21 07:05 Lactic Acid < 0.20 mmol/L (0.7-2.0) L 01/30/21 12:06 Calcium 8.3 mg/dL (8.4-10.2) L 02/04/21 07:05 Ferritin 928.1 ng/mL (10.0-200.0) H 02/03/21 09:50 Total Bilirubin 0.30 mg/dL (0.1-1.2) 02/04/21 07:05 AST 18 units/L (5-40) 02/04/21 07:05 ALT 13 units/L (7-56) 02/04/21 07:05 Alkaline Phosphatase 43 units/L (35-129) 02/04/21 07:05 Lactate Dehydrogenase 246 units/L (91-180) H 01/30/21 10:03 Lactate Dehydrogenase 268 units/L (91-180) H 01/30/21 10:03 C-Reactive Protein 1.90 mg/dL (0.00-1.30) H 02/04/21 07:05 Total Protein 4.9 g/dL (6.3-8.2) L D 02/04/21 07:05 Albumin 2.7 g/dL (3.9-5) L 02/04/21 07:05 Albumin/Globulin Ratio 1.2 % 02/04/21 07:05 Procalcitonin < 0.05 ng/mL (<0.15) 02/02/21 01:46 Urine Color Yellow (Yellow) 01/30/21 12:02 Urine Turbidity Slightly-cloudy (Clear) 01/30/21 12:02 Urine pH 5.0 (5.0-7.0) 01/30/21 12:02 Ur Specific [place] 1.025 (1.003-1.030) 01/30/21 12:02 Urine Protein 100 mg/dl mg/dL (Negative) 01/30/21 12:02 Urine Glucose (UA) Neg mg/dL (Negative) 01/30/21 12:02 Urine Ketones 20 mg/dL (Negative) 01/30/21 12:02 Urine Blood Sm (Negative) 01/30/21 12:02 Urine Nitrite Neg (Negative) 01/30/21 12:02 Urine Bilirubin Neg (Negative) 01/30/21 12:02 Urine Urobilinogen < 2.0 mg/dL (<2.0) 01/30/21 12:02 Ur Leukocyte Esterase Tr (Negative) 01/30/21 12:02 Urine WBC (Auto) 19.0 /HPF (0.0-6.0) H 01/30/21 12:02 Urine RBC (Auto) 1.0 /HPF (0.0-6.0) 01/30/21 12:02 U Epithel Cells (Auto) 1.0 /HPF (0-13.0) 01/30/21 12:02 Urine Bacteria (Auto) 1+ /HPF (Negative) 01/30/21 12:02 Urine Mucus Few /HPF 01/30/21 12:02 Coronavirus (PCR) Positive (Negative) A 01/30/21 Unknown Microbiology: Microbiology 01/30/21 10:03 Peripheral/Venous Blood Culture - Final NO GROWTH AFTER 5 DAYS 01/30/21 10:03 Peripheral/Venous Blood Culture - Final NO GROWTH AFTER 5 DAYS Meneses/IV: Voiding Method External Female Catheter Active Medications - Current Medications Current Medications: Generic Name Dose Route Start Last Admin Trade Name Freq PRN Reason Stop Dose Admin Acetaminophen 650 mg 01/30/21 15:45 02/01/21 15:16 Acetaminophen 325 Mg Tab PO 650 mg Q4H PRN Administration Pain MILD(1-3)/Fever >100.5/AYOUB Albuterol 2.5 mg 01/30/21 15:45 Albuterol 2.5 Mg/3 Ml Nebu IH Q4HRT PRN Shortness Of Breath Ascorbic Acid 500 mg 01/30/21 22:00 02/05/21 10:52 Ascorbic Acid 500 Mg Tab PO 500 mg BID CHARLES Administration Cholecalciferol 1,000 unit 02/02/21 10:00 02/05/21 10:52 Cholecalciferol (Vit D3) 1000 Unit (25 Mcg) Tab PO 1,000 unit Q24HR CHARLES Administration Dexamethasone 6 mg 02/01/21 13:00 02/05/21 10:52 Dexamethasone 4 Mg Tab PO 02/10/21 10:01 6 mg DAILY CHARLES Administration Heparin Sodium (Porcine) 5,000 unit 01/30/21 22:00 02/05/21 10:53 Heparin 5,000 Unit/1 Ml Vial SUB-Q 5,000 unit Q12HR CHARLES Administration Hydromorphone HCl 0.5 mg 01/30/21 15:45 Hydromorphone 1 Mg/1 Ml Inj IV Q12H PRN Pain , Severe (7-10) REMDESIVIR 100 mg/ Sodium 250 mls @ 500 mls/hr 02/02/21 21:00 02/05/21 03:23 Chloride IV 02/05/21 21:29 Infused Q24HR@2100 CHARLES Infusion Ondansetron HCl 4 mg 01/30/21 15:45 Ondansetron 4 Mg/2 Ml Inj IV Q8H PRN Nausea And Vomiting Oxycodone/Acetaminophen 1 tab 01/30/21 15:45 Oxycodone /Acetaminophen 5-325mg Tab PO Q12H PRN Pain, Moderate (4-6) Sodium Chloride 10 ml 01/30/21 22:00 02/05/21 10:53 Sodium Chloride 0.9% 10 Ml Flush Syringe IV 10 ml BID CHARLES Administration Sodium Chloride 10 ml 01/30/21 15:45 Sodium Chloride 0.9% 10 Ml Flush Syringe IV PRN PRN LINE FLUSH Sodium Chloride 50 ml 02/01/21 15:30 02/05/21 03:23 Sodium Chloride 0.9% 50 Ml Ivpb IV 02/05/21 21:01 50 ml Q24HR@2100 CHARLES Administration Zinc Sulfate 220 mg 01/30/21 22:00 02/05/21 10:52 Zinc Sulfate 220 Mg Cap PO 220 mg BID CHARLES Administration Nutrition/Malnutrition Assess - Dietary Evaluation Nutrition/Malnutrition Findings: Nutrition Notes Start: 02/03/21 13:03 Freq: Status: Active Protocol: Document 02/03/21 13:03 SAIRA (Rec: 02/03/21 13:07 SAIRA [id number]) Nutrition 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 Burn Absent Trauma Absent Current % PO Negligible Minimum of two criteria No physical signs of malnutrition #1 Nutrition Diagnosis Inadequate oral intake Etiology advanced age, dementia As Evidenced by Signs and Symptoms pt eating <15% of meals Is patient on ventilator? No Is Patient Ambulatory and/or Out of Bed No REE-([facility]-confined to bed) 1570.904 Calculation Used for Recommendations [facility] Additional Notes Protein: (1-1.2g) 77-94g Fluid: 1 ml/kcal Nutrition Intervention Change Diet Order: continue Add Supplement/Snack (indicate name/kcal Ensure Enlive QID /protein ) Provides kCal: 1,400 Provides Protein (gm) 80 Goal #1 Meet at least 75% of energy and protein needs via PO and ONS Anticipated Discharge Needs: Regular with ONS as needed Follow-Up By: 02/07/21 Additional Comments FU for intakes and ONS tolerance
[2021-02-06] MEDS: ZINC SULFATE 220 MG CAP PO SCH ×2 (09:39→22:49)
[2021-02-06] MEDS: CHOLECALCIFEROL (VIT D3) 1000 UNIT (25 mcg) TAB PO SCH (09:39)
[2021-02-06] MEDS: ASCORBIC ACID 500 MG TAB PO SCH ×2 (09:39→22:49)
[2021-02-06] MEDS: DEXAMETHASONE 4 MG TAB PO SCH (09:39)
[2021-02-06] MEDS: HEPARIN 5,000 UNIT/1 ML VIAL SUB-Q SCH ×2 (09:40→22:48)
--- NOTE | 2021-02-06 09:44 | Progress Note ---
Assessment and Plan Assessment and plan: (1) Urinary tract infection Current Visit: Yes Status: Acute Qualifiers: Encounter type: initial encounter Plan to address problem: IV antibiotic therapy, supportive care, urinalysis, CBC, repeat CBC in a.m. (2) Coronavirus infection Current Visit: Yes Status: Acute Plan to address problem: Coronavirus protocol: IV steroid therapy, supplemental oxygen, pulse oximetry, vitamin C therapy, vitamin D therapy, zinc therapy, supportive care. Prophylactic anticoagulation (3) Systemic inflammatory response syndrome Current Visit: Yes Status: Acute Plan to address problem: IV antibiotic therapy, supportive care, CBC, repeat CBC in a.m. (4) Vascular dementia Current Visit: Yes Status: Acute Qualifiers: Dementia behavioral disturbance: without behavioral disturbance Qualified Code(s): F01.50 - Vascular dementia without behavioral disturbance Plan to address problem: Verbal prompting, verbal redirection, supportive care, benzodiazepine therapy as clinically indicated (5) Cerebral atherosclerosis Current Visit: Yes Status: Acute Plan to address problem: Risk factor reduction, antiplatelet therapy as clinically indicated (6) Volume depletion Current Visit: Yes Status: Acute Plan to address problem: IV fluid resuscitation therapy, BMP, repeat BMP in a.m., monitor fluid balance, strict I's/O, (7) DVT prophylaxis Current Visit: Yes Status: Acute Plan to address problem: SCD to bilateral lower extremities while in bed, prophylactic anticoagulation (8) Advance care planning Current Visit: Yes Status: Acute Plan to address problem: Disease education conducted, care plan discussed, diagnoses discussed, patient is full code, patient knowledges understanding agreement with care plan, +30 minutes. 01/31/21 Patient initially presented with generalized weakness cough, shortness of breath. She is diagnosed with Covid-19 infection, UTI. Patient doing better. She is not on Oxygen. I discussed case with ID Physician. Likely dc home tomorrow. 02/01/21 Patient diagnosed with Covid-19 infection. Today had fever of 102.6. I discussed with ID Physician. Patient started on Dexamethasone and Remdesivir today. patient has multiple sclerosis and not ambulatory to check ambulatory pulse ox, but started on meds to prevent worsening. 02/02/21 patient with Covid-19 infection. Had fever of 102.6 yesterday so started on medications. Poss discharge tomorrow if afebrile. 02/03/21 Patient with Covid-19, on Remdesevir. Fever had resolved. Poss dc home tomorrow if inflammatory markers down, as per ID 02/04/21 Patient with Covid-19 infection. She is stable. Discharge orders put in but son did not come pick her up. 02/05/21 Patient with Covid-19 infection. She is medically stable for discharge. Discharge orders put in but son did not come pick her up. Appealed discharge. caseworker protective services aware. 02/06/21 Patient with Covid-19 infection. She is medically stable for discharge. Discharge orders put in but son did not come pick her up. Appealed discharge. disease case manager rn aware. History Interval history: Patient presented with generalized weakness, cough, fever, SOB, diagnosed with Covid-19 infection Fever resolved patient discharged but son says not ready for her to come home Hospitalist Physical - Physical exam Narrative exam: Gen: Not in acute distress, lying in bed HEENT: Normocephalic, atraumatic Neck : supple, no JVD Heart:S1 and S2 reg, no murmurs, rubs or gallop Lungs: clear to auscultation bilaterally, no wheeze Abd: Soft , NT, non distended, normal bowel sounds Ext: No edema, no clubbing, no cyanosis Neuro: Awake, alert, oriented, moves all ext - Constitutional Vitals: Temp Pulse Resp BP Pulse Ox 97.7 F 74 18 139/73 100 02/05/21 23:01 02/05/21 23:01 02/06/21 02:00 02/05/21 23:01 02/06/21 02:00 Results - Labs CBC & Chem 7: 01/31/21 07:45 02/04/21 07:05 Labs: Laboratory Last Values WBC 3.7 K/mm3 (4.5-11.0) L 01/31/21 07:45 RBC 4.56 M/mm3 (3.65-5.03) 01/31/21 07:45 Hgb 13.2 gm/dl (10.1-14.3) 01/31/21 07:45 Hct 38.3 % (30.3-42.9) 01/31/21 07:45 MCV 84 fl (79-97) 01/31/21 07:45 MCH 29 pg (28-32) 01/31/21 07:45 MCHC 34 % (30-34) 01/31/21 07:45 RDW 13.8 % (13.2-15.2) 01/31/21 07:45 Plt Count 183 K/mm3 (140-440) 01/31/21 07:45 Lymph % (Auto) 17.0 % (13.4-35.0) 01/31/21 07:45 Braxton % (Auto) 5.8 % (0.0-7.3) 01/31/21 07:45 Eos % (Auto) 0.1 % (0.0-4.3) 01/31/21 07:45 Baso % (Auto) 0.3 % (0.0-1.8) 01/31/21 07:45 Lymph # (Auto) 0.6 K/mm3 (1.2-5.4) L 01/31/21 07:45 Braxton # (Auto) 0.2 K/mm3 (0.0-0.8) 01/31/21 07:45 Eos # (Auto) 0.0 K/mm3 (0.0-0.4) 01/31/21 07:45 Baso # (Auto) 0.0 K/mm3 (0.0-0.1) 01/31/21 07:45 Seg Neutrophils % 76.8 % (40.0-70.0) H 01/31/21 07:45 Seg Neutrophils # 2.8 K/mm3 (1.8-7.7) 01/31/21 07:45 D-Dimer 303.87 ng/mlDDU (0-234) H 02/03/21 09:50 Sodium 140 mmol/L (137-145) 02/04/21 07:05 Potassium 3.2 mmol/L (3.6-5.0) L 02/04/21 07:05 Chloride 106.2 mmol/L (98-107) 02/04/21 07:05 Carbon Dioxide 24 mmol/L (22-30) 02/04/21 07:05 Anion Gap 13 mmol/L 02/04/21 07:05 BUN 21 mg/dL (7-17) H 02/04/21 07:05 Creatinine 0.4 mg/dL (0.6-1.2) L 02/04/21 07:05 Estimated GFR > 60 ml/min 02/04/21 07:05 BUN/Creatinine Ratio 53 % 02/04/21 07:05 Glucose 89 mg/dL (65-100) 02/04/21 07:05 Lactic Acid < 0.20 mmol/L (0.7-2.0) L 01/30/21 12:06 Calcium 8.3 mg/dL (8.4-10.2) L 02/04/21 07:05 Ferritin 928.1 ng/mL (10.0-200.0) H 02/03/21 09:50 Total Bilirubin 0.30 mg/dL (0.1-1.2) 02/04/21 07:05 AST 18 units/L (5-40) 02/04/21 07:05 ALT 13 units/L (7-56) 02/04/21 07:05 Alkaline Phosphatase 43 units/L (35-129) 02/04/21 07:05 Lactate Dehydrogenase 246 units/L (91-180) H 01/30/21 10:03 Lactate Dehydrogenase 268 units/L (91-180) H 01/30/21 10:03 C-Reactive Protein 1.90 mg/dL (0.00-1.30) H 02/04/21 07:05 Total Protein 4.9 g/dL (6.3-8.2) L D 02/04/21 07:05 Albumin 2.7 g/dL (3.9-5) L 02/04/21 07:05 Albumin/Globulin Ratio 1.2 % 02/04/21 07:05 Procalcitonin < 0.05 ng/mL (<0.15) 02/02/21 01:46 Urine Color Yellow (Yellow) 01/30/21 12:02 Urine Turbidity Slightly-cloudy (Clear) 01/30/21 12:02 Urine pH 5.0 (5.0-7.0) 01/30/21 12:02 Ur Specific Bogard 1.025 (1.003-1.030) 01/30/21 12:02 Urine Protein 100 mg/dl mg/dL (Negative) 01/30/21 12:02 Urine Glucose (UA) Neg mg/dL (Negative) 01/30/21 12:02 Urine Ketones 20 mg/dL (Negative) 01/30/21 12:02 Urine Blood Sm (Negative) 01/30/21 12:02 Urine Nitrite Neg (Negative) 01/30/21 12:02 Urine Bilirubin Neg (Negative) 01/30/21 12:02 Urine Urobilinogen < 2.0 mg/dL (<2.0) 01/30/21 12:02 Ur Leukocyte Esterase Tr (Negative) 01/30/21 12:02 Urine WBC (Auto) 19.0 /HPF (0.0-6.0) H 01/30/21 12:02 Urine RBC (Auto) 1.0 /HPF (0.0-6.0) 01/30/21 12:02 U Epithel Cells (Auto) 1.0 /HPF (0-13.0) 01/30/21 12:02 Urine Bacteria (Auto) 1+ /HPF (Negative) 01/30/21 12:02 Urine Mucus Few /HPF 01/30/21 12:02 Coronavirus (PCR) Positive (Negative) A 01/30/21 Unknown [place]/IV: Voiding Method Incontinent Active Medications - Current Medications Current Medications: Generic Name Dose Route Start Last Admin Trade Name Freq PRN Reason Stop Dose Admin Acetaminophen 650 mg 01/30/21 15:45 02/01/21 15:16 Acetaminophen 325 Mg Tab PO 650 mg Q4H PRN Administration Pain MILD(1-3)/Fever >100.5/AYOUB Albuterol 2.5 mg 01/30/21 15:45 Albuterol 2.5 Mg/3 Ml Nebu IH Q4HRT PRN Shortness Of Breath Ascorbic Acid 500 mg 01/30/21 22:00 02/06/21 09:39 Ascorbic Acid 500 Mg Tab PO 500 mg BID CHARLES Administration Cholecalciferol 1,000 unit 02/02/21 10:00 02/06/21 09:39 Cholecalciferol (Vit D3) 1000 Unit (25 Mcg) Tab PO 1,000 unit Q24HR CHARLES Administration Dexamethasone 6 mg 02/01/21 13:00 02/06/21 09:39 Dexamethasone 4 Mg Tab PO 02/10/21 10:01 6 mg DAILY CHARLES Administration Heparin Sodium (Porcine) 5,000 unit 01/30/21 22:00 02/06/21 09:40 Heparin 5,000 Unit/1 Ml Vial SUB-Q 5,000 unit Q12HR CHARLES Administration Hydromorphone HCl 0.5 mg 01/30/21 15:45 Hydromorphone 1 Mg/1 Ml Inj IV Q12H PRN Pain , Severe (7-10) Ondansetron HCl 4 mg 01/30/21 15:45 Ondansetron 4 Mg/2 Ml Inj IV Q8H PRN Nausea And Vomiting Oxycodone/Acetaminophen 1 tab 01/30/21 15:45 Oxycodone /Acetaminophen 5-325mg Tab PO Q12H PRN Pain, Moderate (4-6) Sodium Chloride 10 ml 01/30/21 22:00 02/06/21 09:40 Sodium Chloride 0.9% 10 Ml Flush Syringe IV 10 ml BID CHARLES Administration Sodium Chloride 10 ml 01/30/21 15:45 Sodium Chloride 0.9% 10 Ml Flush Syringe IV PRN PRN LINE FLUSH Zinc Sulfate 220 mg 01/30/21 22:00 02/06/21 09:39 Zinc Sulfate 220 Mg Cap PO 220 mg BID CHARLES Administration Nutrition/Malnutrition Assess - Dietary Evaluation Nutrition/Malnutrition Findings: Nutrition Notes Start: 02/03/21 13:03 Freq: Status: Active Protocol: Document 02/03/21 13:03 (Rec: 02/03/21 13:07 [email or web address]) Nutrition Notes Need for Assessment generated from: assembly operator Initial or Follow up Assessment Other Pertinent Diagnosis UTI, COVID PUI, SIRS, dementia Current Diet regular Labs/Tests reviewed Pertinent Medications decadron Height 5 ft 7 in Weight 77.11 kg [place] Body Weight (kg) 61.36 BMI 26.6 Weight Status Appropriate Subjective/Other Doll Wig Hackler states pt not eating well for 2 days (<15% meals) but drank 100% of ONS when given. Burn Absent Trauma Absent Current % PO Negligible Minimum of two criteria No physical signs of malnutrition #1 Nutrition Diagnosis Inadequate oral intake Etiology advanced age, dementia As Evidenced by Signs and Symptoms pt eating <15% of meals Is patient on ventilator? No Is Patient Ambulatory and/or Out of Bed No REE-([facility]-confined to bed) 8414.321 Calculation Used for Recommendations [facility] Additional Notes Protein: (1-1.2g) 77-94g Fluid: 1 ml/kcal Nutrition Intervention Change Diet Order: continue Add Supplement/Snack (indicate name/kcal Ensure Enlive QID /protein ) Provides kCal: 1,400 Provides Protein (gm) 80 Goal #1 Meet at least 75% of energy and protein needs via PO and ONS Anticipated Discharge Needs: Regular with ONS as needed Follow-Up By: 02/07/21 Additional Comments FU for intakes and ONS tolerance
--- NOTE | 2021-02-06 09:59 | Progress Note ---
Assessment and Plan Cultures: SARS CoV2 PCR: Positive 01/30/2021 blood culture: No growth Urine culture: No growth A/P: 76-year-old female with history of MS, does not take any meds was admitted to the hospital with complaints of not feeling well and having a fever: #COVID-19: Not hypoxic, chest x-ray without any obvious evidence of pneumonia. Has been symptomatic with fever and generalized malaise. Labs revealed mild leukopenia, D-dimer 682, ferritin 418, CRP 2.8, procalcitonin 0.05. #Multiple sclerosis: Not on any meds #Question of UTI: Patient has no urinary symptoms. Recs: -CRP improved and she remains on room air, OK for discharge. Does not need to complete remdesivir. Complete remainder of steroid course on discharge. Patient remained stable, ID will sign off. Please call with questions. Gael Mancilla MD [facility] ([facility] O: [phone] F: [phone] Subjective Date of service: 02/06/21 Interval history: Afebrile, no acute change. Patient was supposed to be discharged, however son refused pickup. Objective - Exam Narrative Exam: Physical exam deferred to reduce risk of transmission of COVID-19. Please refer to primary team's note. - Constitutional Vitals: Vital Signs Temp Pulse Resp BP Pulse Ox 97.7 F 74 18 139/73 100 02/05/21 23:01 02/05/21 23:01 02/06/21 02:00 02/05/21 23:01 02/06/21 02:00 Temperature -Last 24 Hours Temperature 97.7 F Temperature 99.4 F - Labs CBC & Chem 7: 01/31/21 07:45 02/04/21 07:05
--- NOTE | 2021-02-06 15:41 | Discharge Summary ---
Providers - Providers Date of Admission: 02/01/21 13:51 Date of discharge: 02/06/21 Attending physician: HIRO MCKENZIE 01/31/21 07:42 Consult to Physician [CONS] Routine Comment: Consulting Provider: KAMINI RIVERA Physician Instructions: Reason For Exam: Covid-19 02/02/21 08:28 Physical Therapy Evaluation and Treat [CONS] Stat Comment: weakness Reason For Exam: Eval and treat 02/02/21 08:29 Occupational Therapy Evaluate and Treat [CONS] Stat Comment: Weakness Reason For Exam: Eval and treat Primary care physician: ELECTRICAL TECH/PROJECT MANAGER Hospitalization Condition: Stable Disposition: DC- TO HOME OR SELFCARE Final Discharge Diagnosis (Prints w/discharge instructions): 1.Covid-19 pneumonia. 2.UTI - Discharge Diagnoses (1) Coronavirus infection Status: Acute (2) Systemic inflammatory response syndrome Status: Acute (3) Urinary tract infection Status: Acute Qualifiers: Encounter type: initial encounter Core Measure Documentation - Palliative Care Palliative Care/ Comfort Measures: Not Applicable - Core Measures Any of the following diagnoses?: none Exam - Constitutional Vitals: Temp Pulse Resp BP Pulse Ox 98.0 F 83 18 139/53 98 02/06/21 11:44 02/06/21 11:44 02/06/21 11:44 02/06/21 11:44 02/06/21 11:44 Plan Activity: advance as tolerated Diet: regular Plan of Treatment: 1.Follow up with PCP in 1 week Follow up with: PRIMARY MD GISELLE [Primary Care Provider] - 3-5 Days Prescriptions: Dexamethasone 6 mg PO DAILY #7 tablet Famotidine [Pepcid] 20 mg PO BID #30 tablet
[2021-02-07] MEDS: HEPARIN 5,000 UNIT/1 ML VIAL SUB-Q SCH ×2 (10:37→22:47)
[2021-02-07] MEDS: CHOLECALCIFEROL (VIT D3) 1000 UNIT (25 mcg) TAB PO SCH (10:37)
[2021-02-07] MEDS: ASCORBIC ACID 500 MG TAB PO SCH ×2 (10:37→22:47)
[2021-02-07] MEDS: ZINC SULFATE 220 MG CAP PO SCH ×2 (10:37→22:47)
[2021-02-07] MEDS: DEXAMETHASONE 4 MG TAB PO SCH (10:37)
--- NOTE | 2021-02-07 13:00 | Progress Note ---
Assessment and Plan 76-year-old female with history of MS, does not take any meds was admitted to the hospital with complaints of not feeling well and having a fever: She has been tested positive for COVID 19. ID consulted and completed remdesivir, patient now on room air. Pending discharge on family availability: Patient son refusing to take the patient home. Assessment and plan: --Urinary tract infection Received IV antibiotic therapy, supportive care, patient asymptomatic --Coronavirus infection Status post remdesivir, continue dexamethasone for 10 days ID consulted and cleared patient for discharge -- Systemic inflammatory response syndrome Likely due to underlying Covid infection -- Vascular dementia Verbal prompting, verbal redirection, supportive care, --History of multiple sclerosis Patient not on any treatment, continue supportive care -- Volume depletion IV fluid resuscitation therapy,monitor fluid balance, strict I's/O, -- DVT prophylaxis SCD to bilateral lower extremities while in bed, prophylactic anticoagulation --Full CODE STATUS Daily clinical course: 01/31/21 Patient initially presented with generalized weakness cough, shortness of breath. She is diagnosed with Covid-19 infection, UTI. Patient doing better. She is not on Oxygen. I discussed case with ID Physician. Likely dc home tomorrow. 02/01/21 Patient diagnosed with Covid-19 infection. Today had fever of 102.6. discussed with ID Physician. Patient started on Dexamethasone and Remdesivir today. patient has multiple sclerosis and not ambulatory to check ambulatory pulse ox, but started on meds to prevent worsening. 02/02/21 patient with Covid-19 infection. Had fever of 102.[address] arted on medications. Poss discharge tomorrow if afebrile. 02/03/21 Patient with Covid-19, on Remdesevir. Fever had resolved. Poss dc home tomorrow if inflammatory markers down, as per ID 02/04/21 Patient with Covid-19 infection. She is stable. Discharge orders put in but son did not come pick her up. 02/05/21 Patient with Covid-19 infection. She is medically stable for discharge. Discharge orders put in but son did not come pick her up. Appealed discharge. case managers aware. 02/06/21 Patient with Covid-19 infection. She is medically stable for discharge. Discharge orders put in but son did not come pick her up. Appealed discharge. customer account manager aware. 02/07/21: Patient clinically stable for discharge and also cleared by ID. Pending discharge on family availability to supervisor opening and picking the patient from hospital. Patient discharged but son says not ready for her to come home. Subjective Date of service: 02/07/21 Interval history: Patient seen and examined. Medical records and medication list reviewed. No acute event overnight noted by the RN. Patient denies any chest pain or difficulty breathing. Patient is tolerating diet. Patient on room air Discussed plan of care at bedside with patient. Objective - Exam Narrative Exam: Limited physical exam due to COVID-19 pandemic to minimize transmission of the disease and to preserve PPE. Vital reviewed and stable. GENERAL: well-developed well-nourished elderly female lying on bed appeared to be in no discomfort. HEENT: Normocephalic. Atraumatic. NECK: Supple. CHEST/LUNGS: breathing nonlabored. HEART/CARDIOVASCULAR: Heart rate stable on telemetry ABDOMEN: Visibly not distended SKIN: There is no rash NEURO: No focal motor deficit. Follows command. MUSCULOSKELETAL: No joint effusion EXTRIMITY: No swelling, no cyanosis or clubbing. PSYCH: Cooperative. - Constitutional Vitals: Vital Signs - 12hr 02/07/21 02/07/21 10:00 11:12 Temperature 98.0 F Respiratory 20 18 Rate Blood Pressure 156/80 O2 Sat by Pulse 100 Oximetry - Labs CBC & Chem 7: 02/07/21 13:56 02/07/21 13:56
[2021-02-07 14:39] LABS: Hematocrit 38.7 % (30.3-42.9); Hemoglobin 12.9 gm/dl (10.1-14.3); Mean Corpuscular HGB Conc 33 % (30-34); Mean Corpuscular Volume 85 fl (79-97); Platelet Count 320 K/mm3 (140-440); Red Blood Count 4.58 M/mm3 (3.65-5.03); Red Cell Distribution Width 13.9 % (13.2-15.2)
[2021-02-07 15:01] LABS: Blood Urea Nitrogen 18 mg/dL (7-17); Calcium 8.8 mg/dL (8.4-10.2); Hemolysis Index 3
[2021-02-07 15:07] LABS: BUN/Creatinine Ratio 36
[2021-02-08 11:32] VITALS: BP 131/63
[2021-02-08] MEDS: ASCORBIC ACID 500 MG TAB PO SCH (11:51)
[2021-02-08] MEDS: DEXAMETHASONE 4 MG TAB PO SCH (11:51)
[2021-02-08] MEDS: HEPARIN 5,000 UNIT/1 ML VIAL SUB-Q SCH (11:51)
[2021-02-08] MEDS: CHOLECALCIFEROL (VIT D3) 1000 UNIT (25 mcg) TAB PO SCH (11:51)
[2021-02-08] MEDS: ZINC SULFATE 220 MG CAP PO SCH (11:51)
--- NOTE | 2021-02-08 14:21 | Progress Note ---
Assessment and Plan 76-year-old female with history of MS, does not take any meds was admitted to the hospital with complaints of not feeling well and having a fever: She has been tested positive for COVID 19. ID consulted and completed remdesivir, patient now on room air. Pending discharge on family availability: Patient son refusing to take the patient home. Assessment and plan: --Urinary tract infection Received IV antibiotic therapy, supportive care, patient asymptomatic --Coronavirus infection Status post remdesivir, continue dexamethasone for 10 days ID consulted and cleared patient for discharge -- Systemic inflammatory response syndrome Likely due to underlying Covid infection -- Vascular dementia Verbal prompting, verbal redirection, supportive care, --History of multiple sclerosis Patient not on any treatment, continue supportive care -- Volume depletion IV fluid resuscitation therapy,monitor fluid balance, strict I's/O, -- DVT prophylaxis SCD to bilateral lower extremities while in bed, prophylactic anticoagulation --Full CODE STATUS Daily clinical course: 01/31/21 Patient initially presented with generalized weakness cough, shortness of breath. She is diagnosed with Covid-19 infection, UTI. Patient doing better. She is not on Oxygen. I discussed case with ID Physician. Likely dc home tomorrow. 02/01/21 Patient diagnosed with Covid-19 infection. Today had fever of 102.6. discussed with ID Physician. Patient started on Dexamethasone and Remdesivir today. patient has multiple sclerosis and not ambulatory to check ambulatory pulse ox, but started on meds to prevent worsening. 02/02/21 patient with Covid-19 infection. Had fever of 102.[address] arted on medications. Poss discharge tomorrow if afebrile. 02/03/21 Patient with Covid-19, on Remdesevir. Fever had resolved. Poss dc home tomorrow if inflammatory markers down, as per ID 02/04/21 Patient with Covid-19 infection. She is stable. Discharge orders put in but son did not come pick her up. 02/05/21 Patient with Covid-19 infection. She is medically stable for discharge. Discharge orders put in but son did not come pick her up. Appealed discharge. behavioral health case manager aware. 02/06/21 Patient with Covid-19 infection. She is medically stable for discharge. Discharge orders put in but son did not come pick her up. Appealed discharge. lead assistant manager aware. 02/07/21: Patient clinically stable for discharge and also cleared by ID. Pending discharge on family availability to picker packer the patient from hospital. Patient discharged but son says not ready for her to come home. 02/08/21: Patient is clinically stable but unable to reach out to patient's son. Discussed with behavioral health case manager, plan for SNF placement Subjective Date of service: 02/08/21 Interval history: Patient seen and examined. Medical records and medication list reviewed. No acute event overnight noted by the RN. Patient denies any chest pain or difficulty breathing. Patient is tolerating diet. Patient on room air Discussed plan of care at bedside with patient. Objective - Exam Narrative Exam: Limited physical exam due to COVID-19 pandemic to minimize transmission of the disease and to preserve PPE. Vital reviewed and stable. GENERAL: well-developed well-nourished elderly female lying on bed appeared to be in no discomfort. HEENT: Normocephalic. Atraumatic. NECK: Supple. CHEST/LUNGS: breathing nonlabored. HEART/CARDIOVASCULAR: Heart rate stable on telemetry ABDOMEN: Visibly not distended SKIN: There is no rash NEURO: No focal motor deficit. Follows command. MUSCULOSKELETAL: No joint effusion EXTRIMITY: No swelling, no cyanosis or clubbing. PSYCH: Cooperative. - Constitutional Vitals: Vital Signs - 12hr 02/08/21 02/08/21 04:49 11:22 Temperature 97.9 F 98.7 F Pulse Rate 80 75 Respiratory 18 18 Rate Blood Pressure 128/67 131/63 O2 Sat by Pulse 96 93 Oximetry - Labs CBC & Chem 7: 02/07/21 13:56 02/07/21 13:56 Labs: Abnormal lab results 02/07/21 Range/Units 13:56 BUN 18 H (7-17) mg/dL Creatinine 0.5 L (0.6-1.2) mg/dL Glucose 113 H (65-100) mg/dL
--- NOTE | 2021-02-09 09:07 | Discharge Summary ---
Providers - Providers Date of Admission: 02/01/21 13:51 Date of discharge: 02/08/21 Attending physician: KIRAN QUINTERO 01/31/21 07:42 Consult to Physician [CONS] Routine Comment: Consulting Provider: KAMINI RIVERA Physician Instructions: Reason For Exam: Covid-19 02/02/21 08:28 Physical Therapy Evaluation and Treat [CONS] Stat Comment: weakness Reason For Exam: Eval and treat 02/02/21 08:29 Occupational Therapy Evaluate and Treat [CONS] Stat Comment: Weakness Reason For Exam: Eval and treat Primary care physician: BOILER OR ENGINE OPERATOR Hospitalization Condition: Stable Pertinent studies: CXR Hospital course: 76-year-old female with history of MS, does not take any meds was admitted to the hospital with complaints of not feeling well and having a fever: She has been tested positive for COVID 19. ID consulted and completed remdesivir, patient now on room air. Pending discharge on family availability: Patient son was refusing to take the patient home. Daily clinical course: 01/31/21 Patient initially presented with generalized weakness cough, shortness of breath. She is diagnosed with Covid-19 infection, UTI. Patient doing better. She is not on Oxygen. I discussed case with ID Physician. Likely dc home tomorrow. 02/01/21 Patient diagnosed with Covid-19 infection. Today had fever of 102.6. discussed with ID Physician. Patient started on Dexamethasone and Remdesivir today. patient has multiple sclerosis and not ambulatory to check ambulatory pulse ox, but started on meds to prevent worsening. 02/02/21 patient with Covid-19 infection. Had fever of 102.6 yesterday so started on medications. Poss discharge tomorrow if afebrile. 02/03/21 Patient with Covid-19, on Remdesevir. Fever had resolved. Poss dc home tomorrow if inflammatory markers down, as per ID 02/04/21 Patient with Covid-19 infection. She is stable. Discharge orders put in but son did not come pick her up. 02/05/21 Patient with Covid-19 infection. She is medically stable for discharge. Discharge orders put in but son did not come pick her up. Appealed discharge. case mgr aware. 02/06/21 Patient with Covid-19 infection. She is medically stable for discharge. Discharge orders put in but son did not come pick her up. Appealed discharge. senior planning manager aware. 02/07/21: Patient clinically stable for discharge and also cleared by ID. Pending discharge on family availability to berry picker machine operator the patient from hospital. Patient discharged but son says not ready for her to come home. 02/08/21: Patient is clinically stable but was unable to reach out to patient's son. Discussed with case mgr and plan was for SNF placement. Later on the Son called and came to berry picker machine operator the patient. patient was discharged home with her Son in stable condition. her inflammatory markers are stable and completed dexamethasone and remdesivir. Assessment and plan: --Urinary tract infection Received IV antibiotic therapy, supportive care, patient asymptomatic --Coronavirus infection Status post remdesivir and dexamethasone for 10 days ID consulted and cleared patient for discharge -- Systemic inflammatory response syndrome Likely due to underlying Covid infection -- Vascular dementia Verbal prompting, verbal redirection, supportive care, --History of multiple sclerosis Patient not on any treatment, continue supportive care -- Volume depletion IV fluid resuscitation therapy,monitor fluid balance, strict I's/O, -- DVT prophylaxis SCD to bilateral lower extremities while in bed, prophylactic anticoagulation --Full CODE STATUS Disposition: [id number] HOME UNDER HOME [facility] Final Discharge Diagnosis (Prints w/discharge instructions): --Urinary tract infection. --Coronavirus infection. -- Systemic inflammatory response syndrome. -- Vascular dementia. --History of multiple sclerosis. -- Volume depletion Time spent for discharge: 34 minutes Core Measure Documentation - Palliative Care Palliative Care/ Comfort Measures: Not Applicable - Core Measures Any of the following diagnoses?: none Exam - Physical Exam Narrative exam: Limited physical exam due to COVID-19 pandemic to minimize transmission of the disease and to preserve PPE. Vital reviewed and stable. GENERAL: well-developed well-nourished elderly female lying on bed appeared to be in no discomfort. HEENT: Normocephalic. Atraumatic. NECK: Supple. CHEST/LUNGS: breathing nonlabored. HEART/CARDIOVASCULAR: Heart rate stable on telemetry ABDOMEN: Visibly not distended SKIN: There is no rash NEURO: No focal motor deficit. Follows command. MUSCULOSKELETAL: No joint effusion EXTRIMITY: No swelling, no cyanosis or clubbing. PSYCH: Cooperative. - Constitutional Vitals: Temp Pulse Resp BP Pulse Ox 98.7 F 75 18 131/63 93 02/08/21 11:22 02/08/21 11:22 02/08/21 11:22 02/08/21 11:22 02/08/21 11:22 Plan Activity: fall precautions Weight Bearing Status: Non-Weight Bearing Diet: advance as tolerated Plan of Treatment: 1.Follow up with PCP in 1 week Follow up with: PRIMARY CARE, [Primary Care Provider] - 3-5 Days Prescriptions: Famotidine [Pepcid] 20 mg PO BID #30 tablet
== END 2021-02-08 16:00 | disposition home health service (06) | DRG 178 ==
LOC: ED 07:29 → 3A 15:45 → OBSVTOIN 02-01 13:51
PROVIDERS: ADMIT Internal Medicine; ATTEND Internal Medicine
DX: U07.1 COVID-19 (principal); R65.10 Systemic inflammatory response syndrome (SIRS) of non-infectious origin without acute organ dysfunction; N39.0 Urinary tract infection, site not specified; E86.9 Volume depletion, unspecified; F01.50 Vascular dementia, unspecified severity, without behavioral disturbance, psychotic disturbance, mood disturbance, and anxiety; I67.2 Cerebral atherosclerosis; Z82.49 Family history of ischemic heart disease and other diseases of the circulatory system; Z79.899 Other long term (current) drug therapy; Z79.891 Long term (current) use of opiate analgesic; Z79.01 Long term (current) use of anticoagulants; Z83.3 Family history of diabetes mellitus; Z63.5 Disruption of family by separation and divorce
CPT/HCPCS: 36415; 71045; 80048; 80053; 81001; 82140; 82728; 82947; 83615; 84145; 85025; 85027; 85379; 86140; 87040; 87086; 96365; 96366; 96375; G0378; J0456; J0696; J1100; J1644; J2920; J7030; J7050; J8540; U0003